=== PATIENT | female | born 1950 | race Caucasian/White ===

== ENCOUNTER 2017-03-08 18:41 | Inpatient (IN) | payer MEDICARE, OTHER ==
[2017-03-08] MEDS ORDERED: 0.9 % SODIUM CHLORIDE 1,000 ML BAG IV ONE (18:55)
[2017-03-08] MEDS ORDERED: ONDANSETRON HCL IV 4 MG/2 ML VIAL IV ONE (18:55)
[2017-03-08] MEDS ORDERED: 0.9 % SODIUM CHLORIDE 1000ML 1,000 ML IV ONE (18:55)
--- NOTE | 2017-03-08 19:03 | Emergency Department Record ---
History of Present Illness - General Chief complaint: Nausea, Vomiting, Diarrhea Stated complaint: VOMITING,DIARRHEA Time Seen by Provider: 03/08/17 18:54 Source: Patient, Family Mode of Arrival: Ambulatory Limitations: No limitations - History of Present Illness Initial comments: 66 yo female presents with nausea, vomiting and diarrhea. The onset of the symptoms was Sunday. On Sunday she only had nausea and vomiting. By Sunday the diarrhea developed. She has had continuous vomiting and diarrhea since that time. No blood in the vomit or stools. She saw her PCP. She was started on Bentyl and Protonix. The symptoms continued and she was started on Cipro yesterday. No fevers. MD complaint: Diarrhea, Nausea, Vomiting -: Days(s) (4) Description of Vomiting: Watery Description of Diarrhea: Water Associated Abdominal Pain: Yes Location: Diffuse Severity: Moderate Quality: Cramping Consistency: Constant Improves with: None Worsens with: Eating Context: Sick contacts Associated Symptoms: Malaise, Weakness - Related Data Home Medications Medication Instructions Recorded Confirmed Last Taken Cholecalciferol (Vitamin D3) 1,000 unit PO DAILY 01/09/15 03/08/17 03/08/17 [Vitamin D3] Glipizide [Glipizide ER] 5 mg PO BID 01/09/15 03/08/17 03/08/17 Lisinopril [Zestril] 10 mg PO DAILY 01/09/15 03/08/17 03/08/17 Metformin HCl [Glucophage] 1,000 mg PO BID 01/09/15 03/08/17 03/08/17 Aspirin [Aspirin EC] 81 mg PO DAILY 09/10/15 03/08/17 03/08/17 Rivaroxaban [Xarelto] 15 mg PO QHS 09/10/15 03/08/17 03/07/17 Atenolol [Atenolol] 50 mg PO DAILY 03/08/17 03/08/17 03/08/17 Ciprofloxacin HCl [Cipro] 500 mg PO DAILY 03/08/17 03/08/17 03/08/17 Metronidazole [Flagyl] 500 mg PO DAILY 03/08/17 03/08/17 03/08/17 Allergies Allergy/AdvReac Type Severity Reaction Status Date / Time No Known Drug Allergies Allergy Verified 09/10/15 14:47 Review of Systems Constitutional: Reports: Malaise, Weakness. Denies: Chills, Fever Eyes: Denies: Eye discharge, Vision change ENT: Denies: Congestion, Throat pain Respiratory: Denies: Cough, Dyspnea, Wheezes Cardiovascular: Denies: Chest pain, Palpitations, Syncope Endocrine: Reports: Fatigue Gastrointestinal: Reports: Diarrhea, Nausea, Vomiting. Denies: Abdominal pain, Constipation, Hematemesis, Hematochezia, Melena Genitourinary: Denies: Dysuria, Frequency, Urgency Musculoskeletal: Denies: Arthralgia, Back pain, Neck pain Skin: Denies: Bruising, Change in color, Rash Neurological: Denies: Headache, Weakness Psychiatric: Denies: Anxiety Hematological/Lymphatic: Denies: Easy bruising, Swollen glands Past Medical History - SOCIAL HISTORY Smoking Status: Former smoker - RESPIRATORY Hx Respiratory Disorders: Yes Hx Asthma: Yes Hx COPD: Yes ((start of emphysema)) Hx Pulmonary Embolism: Yes (01/2015) - CARDIOVASCULAR Hx Cardio Disorders: Yes Hx Abnormal EKG: Yes Hx Heart Attack: Yes (04/2015 while in hospital for urospesis) Hx Hypertension: Yes Hx Irregular Heartbeat: Yes (a-fib) Comment:: no comment - NEURO Hx Neuro Disorders: No Hx CVA: No Hx of Migraines: No - GI Hx GI Disorders: No Hx GI Bleed: No - Hx Genitourinary Disorders: Yes Hx UTI: Yes (04/2015 urosepsis) - ENDOCRINE Hx Endocrine Disorders: Yes Hx Diabetes: Yes - MUSCULOSKELETAL Hx Musculoskeletal Disorders: No Hx Arthritis: No - PSYCH Hx Psych Problems: No - HEMATOLOGY/ONCOLOGY Hx Hematology/Oncology Disorders: Yes Hx Anemia: Yes (currently) Hx Blood Transfusions: Yes (09/2015 2 units PRBC's) Family Medical History Hx Cancer: Mother *Cancer Comment: gastric Hx Diabetes: Mother Hx Stroke: Mother Physical Exam - General General Appearance: Alert, Oriented x3 Limitations: No limitations - Head Head exam: Atraumatic, Normocephalic, Normal inspection - Eye Eye exam: Normal appearance. negative: Conjunctival injection, Periorbital swelling, Scleral icterus - ENT ENT exam: Mucous membranes dry, Normal orophraynx Ear exam: Normal external inspection Nasal Exam: Normal inspection Mouth exam: Normal external inspection Teeth exam: Normal inspection Throat exam: Normal inspection - Neck Neck exam: Normal inspection, Full ROM. negative: Tenderness - Respiratory Respiratory exam: Normal lung sounds bilaterally. negative: Respiratory distress - Cardiovascular Cardiovascular Exam: Regular rate, Normal rhythm, Normal heart sounds - GI/Abdominal GI/Abdominal exam: Normal bowel sounds, Tenderness (very mild diffuse, very soft abdomen). negative: Distended, Guarding, Rigid - Rectal Rectal exam: Deferred - exam: Deferred - Extremities Extremities exam: Normal inspection, Full ROM, Normal capillary refill. negative: Tenderness - Back Back exam: Reports: Normal inspection, Full ROM. Denies: Muscle spasm, Rash noted, Tenderness - Neurological Neurological exam: Alert, Normal gait, Oriented X3 - Psychiatric Psychiatric exam: Normal affect, Normal mood. negative: Agitated, Anxious - Skin Skin exam: Dry, Intact, Normal color, Warm Course - Reevaluation(s) Reevaluation #1: 03/08/17 19:03 EMR reviewed 2014 PE Vitals reviewed. no acute changes of HR, BP, temp Reevaluation #2: 03/08/17 19:56 The labs were reviewed No acute changes of the WBC The sodium is low at 22 The BUN and Cr are elevated at 32 and 1.3 Her HCO3 is 16 She is dehydrated and will require admission with on going fluid and electrolyte replacement Reevaluation #3: The patient does not have a fever or elevated WBC count at this time Her abdomen is soft and not significantly tender to palpation No WBC's on her stool. She is heme positive but this is likely from her irritated anus from wiping as she is not having gross blood on stools. 03/08/17 20:15 Reevaluation #4: C. diff is negative. 03/08/17 20:34 Medical Decision Making - Lab Data Result diagrams: 03/08/17 19:20 03/08/17 19:20 Disposition Disposition: Admit Clinical Impression: Dehydration, Vomiting and diarrhea, Hyponatremia Disposition: Home, Self-Care Decision to Admit: Admit from ER Decision to Admit Date: 03/08/17 Decision to Admit Time: 19:59 Condition: (2) Stable Forms: Patient Portal Access Time of Disposition: 19:59
[2017-03-08 19:26] LABS: BASO % 0.3 % (0-6); GRAN % 64.9 % (47-80); HEMATOCRIT 36.8 % (35.0-47.0); HEMOGLOBIN 12.5 gm/dl (11.6-16.0); LYMPH % 27.6 % (16-45); MEAN CELL VOLUME 83.1 fl (81-97); MEAN CORPUSCULAR HEMOGLOBIN 28.2 pg (27-33); MEAN PLATELET VOLUME 11.3 fl (7.4-10.4); MONO % 7.2 % (0-9); PLATELET COUNT 282 K/uL (130-400); RED BLOOD COUNT 4.43 M/uL (3.80-5.40); RED CELL DISTRIBUTION WIDTH 13.7 % (11.5-14.5); WHITE BLOOD COUNT W/O DIFF 6.4 K/uL (4.2-12.2)
[2017-03-08 19:38] LABS: ALB/GLOB RATIO 1.3 (1.1-1.8); ALBUMIN 3.9 gm/dL (3.5-5.0); BILIRUBIN,TOTAL 0.39 mg/dL (0.2-1.3); CREATININE 1.3 mg/dL (0.52-1.04)
[2017-03-08 19:45] LABS: STOOL FOR POLYS NO WBC'S OBSERVED
[2017-03-08 19:47] LABS: CRYPTOSPORIDIUM PARVUM ANTIGEN NOT DETECTED (NOT DETECT); GIARDIA LAMBLIA ANTIGEN NOT DETECTED (NOT DETECT); ROTOVIRUS NOT DETECTED (NOT DETECT)
[2017-03-08 20:29] LABS: MOLECULAR C DIFF TOXIN SCREEN NOT DETECTED
[2017-03-08] MEDS ORDERED: ONDANSETRON HCL IV 4 MG/2 ML VIAL IVP PRN (20:36)
[2017-03-08] MEDS ORDERED: ZINC OXIDE 28.35 GM TUBE TOP PRN (22:07)
[2017-03-08] MEDS: POTASSIUM CHL 20MEQ IN 1L NS 20 MEQ/1,000 ML BAG IV SCH (22:11)
[2017-03-09] MEDS: POTASSIUM CHL 20MEQ IN 1L NS 20 MEQ/1,000 ML BAG IV SCH ×2 (06:36→16:07)
[2017-03-09 06:56] LABS: BASO % 0.4 % (0-6); EOS % 0.1 % (0-6); GRAN % 71.8 % (47-80); HEMATOCRIT 35.6 % (35.0-47.0); LYMPH % 20.4 % (16-45); MEAN CELL VOLUME 84.6 fl (81-97); MEAN CORPUSCULAR HEMOGLOBIN 28.5 pg (27-33); MEAN CORPUSCULAR HGB CONC 33.7 g/dl (32-36); MEAN PLATELET VOLUME 11.5 fl (7.4-10.4); MONO % 7.3 % (0-9); PLATELET COUNT 267 K/uL (130-400); RED BLOOD COUNT 4.21 M/uL (3.80-5.40); WHITE BLOOD COUNT W/O DIFF 7.8 K/uL (4.2-12.2)
[2017-03-09 07:07] LABS: ALB/GLOB RATIO 1.1 (1.1-1.8); ALBUMIN 3.4 gm/dL (3.5-5.0); ALKALINE PHOSPHATASE 68 U/L (38-126); ALT/SGPT 59 U/L (9-52); ANION GAP 11.5 (7-16); AST/SGOT 36 U/L (14-36); BILIRUBIN,TOTAL 0.46 mg/dL (0.2-1.3); BLOOD UREA NITROGEN 16 mg/dL (7-17); CARBON DIOXIDE 17.5 mmol/L (22-30); CREATININE 0.9 mg/dL (0.52-1.04); EST GLOMERULAR FILTRATION RATE > 60 ml/min; GLUCOSE,RANDOM 228 mg/dL (70-110); TOTAL PROTEIN 6.4 gm/dL (6.3-8.2)
--- NOTE | 2017-03-09 08:25 | History & Physical ---
History of Present Illness - Date of Service Date of Service for History & Physical: 03/09/17 - History of Present Illness Admitting Diagnosis: diarrhea and vomiting, hyponatremia, dehydration History of Present Illness: 66y female with CC of nausea, vomiting and diarrhea. She has a history of COPD, [place] -[place], HTN, afib, sepsis 2/2 UTI-2014, T2DM, anemia, and pulmonary embolism in 2014 Patient presented to the ED with vomiting and diarrhea since Sunday. She had seen her pcp twice this week for these symptoms. was started on protonix at the first visit and cipro at the second without any improvement. Says she threw the cipro right back up after taking it. She came in to the ED because she wasn't keeping any liquids down. While in the ED, patient was noted to have electrolyte abnormalities. Sodium was low at 122, chloride low at 93, bicarb low at 16, and potassium slightly low at 3.4. BP and heart rate were within normal ranges. blood glucose was elevated at 248. She had not been able to take her diabetes medications for several days. Stool studies were negative for rota, crypto, giardia, and c.diff. She did have positive stool occult, however, there was active rectal bleeding 2/2 irritation noted. Patient was given bolus NS and admitted for N/V, diarrhea and dehydration 03/09/17-patient states she is no longer having any nausea or vomiting. She denies abdominal pain. States she did have some lower abdominal cramping while having a BM but has not had any further cramping. She continues to have frequent loose stool at least 5 times this morning. does not feel this has improved at all. She reports trying some immodium this week with no success. her last cscope was in the past 3 months and was told everything looked good. She has never had symptoms like this before. no one else at home is sick. no recent travel. pcp: cheli Travel Screening - Travel/Exposure Within Last 30 Days Have you traveled within the last 30 days?: No - Travel/Exposure Within Last Year Have you traveled outside the [place] in the last year?: No - Additonal Travel Details Have you been exposed to anyone with a communicable illness?: No - Travel Symptoms Symptom Screening: None Review of Systems Constitutional: Reports: Weakness. Denies: Chills, Fever Eyes: Denies: Eye discharge, Vision change ENT: Denies: Congestion, Throat pain Respiratory: Denies: Cough, Dyspnea, Wheezes Cardiovascular: Denies: Chest pain, Palpitations, Syncope Endocrine: Reports: Fatigue Gastrointestinal: Reports: Diarrhea, Nausea, Vomiting. Denies: Abdominal pain, Constipation, Hematemesis, Hematochezia, Melena Genitourinary: Denies: Dysuria, Frequency, Urgency Musculoskeletal: Denies: Arthralgia, Back pain, Neck pain Skin: Denies: Bruising, Change in color, Rash Neurological: Denies: Headache, Weakness Psychiatric: Denies: Anxiety Hematological/Lymphatic: Denies: Easy bruising, Swollen glands Past Medical History - SOCIAL HISTORY Smoking Status: Former smoker Alcohol Use: None Drug Use: None - RESPIRATORY Hx Respiratory Disorders: Yes Hx Asthma: Yes Hx COPD: Yes ((start of emphysema)) Hx Pulmonary Embolism: Yes (01/2015) - CARDIOVASCULAR Hx Cardio Disorders: Yes Hx Abnormal EKG: Yes Hx Heart Attack: Yes (04/2015 while in hospital for urospesis) Hx Hypertension: Yes Hx Irregular Heartbeat: Yes (a-fib) Comment:: no comment - NEURO Hx Neuro Disorders: No Hx CVA: No Hx of Migraines: No - GI Hx GI Disorders: No Hx GI Bleed: No - Hx Genitourinary Disorders: Yes Hx UTI: Yes (04/2015 urosepsis) - ENDOCRINE Hx Endocrine Disorders: Yes Hx Diabetes: Yes - MUSCULOSKELETAL Hx Musculoskeletal Disorders: No Hx Arthritis: No - PSYCH Hx Psych Problems: No - HEMATOLOGY/ONCOLOGY Hx Hematology/Oncology Disorders: Yes Hx Anemia: Yes (currently) Hx Blood Transfusions: Yes (09/2015 2 units PRBC's) Family Medical History Any Significant Family History?: No Hx Cancer: Mother *Cancer Comment: gastric Hx Diabetes: Mother Hx Stroke: Mother H&P Meds/Allergies - Allergies Allergies: Allergies Allergy/AdvReac Type Severity Reaction Status Date / Time No Known Drug Allergies Allergy Verified 09/10/15 14:47 - Home Medications Home Medications Medication Instructions Recorded Confirmed Last Taken Cholecalciferol (Vitamin D3) 1,000 unit PO DAILY 01/09/15 03/08/17 03/08/17 [Vitamin D3] Glipizide [Glipizide ER] 5 mg PO BID 01/09/15 03/08/17 03/08/17 Lisinopril [Zestril] 10 mg PO DAILY 01/09/15 03/08/17 03/08/17 Metformin HCl [Glucophage] 1,000 mg PO BID 01/09/15 03/08/17 03/08/17 Aspirin [Aspirin EC] 81 mg PO DAILY 09/10/15 03/08/17 03/08/17 Rivaroxaban [Xarelto] 15 mg PO QHS 09/10/15 03/08/17 03/07/17 Atenolol [Atenolol] 50 mg PO DAILY 03/08/17 03/08/17 03/08/17 Ciprofloxacin HCl [Cipro] 500 mg PO DAILY 03/08/17 03/08/17 03/08/17 Metronidazole [Flagyl] 500 mg PO DAILY 03/08/17 03/08/17 03/08/17 - Active Medications Active Medications: Current Medications Aspirin (Ecotrin (Ec)) 81 mg PO DAILY [facility] Atenolol (Tenormin) 50 mg PO DAILY [facility] Potassium Chloride/Sodium Chloride ( Potassium Chl 20meq/) 20 meq in 1,000 mls @ 125 mls/hr IV Q8H [facility] Last Admin: 03/09/17 06:36 Dose: 125 mls/hr Insulin Aspart (Novolog Flexpen) 1 unit SQ TIDINS [facility] PRN Reason: Protocol Lisinopril (Zestril) 10 mg PO DAILY [facility] Ondansetron HCl (Zofran) 4 mg IVP Q4H PRN PRN Reason: NAUSEA Rivaroxaban (Xarelto) 15 mg PO 1730 [facility] Zinc Oxide (Desitin) 28.35 gm TOP ASDIR PRN PRN Reason: RASH Last Admin: 03/08/17 22:13 Dose: 28.35 gm Physical Exam - Vital Signs Vital Signs: Vital Signs - Last 24 Hrs Temp Pulse Resp BP Pulse Ox 03/09/17 06:00 97.8 F 91 H 18 122/61 95 03/09/17 02:36 99.0 F 92 H 20 102/55 95 03/09/17 01:38 12 03/08/17 21:08 97.9 F 85 20 124/62 99 - General General Appearance: Alert, Oriented x3, Cooperative, No acute distress Limitations: No limitations - Head Head exam: Atraumatic, Normocephalic, Normal inspection - Eye Eye exam: Normal appearance. negative: Conjunctival injection, Periorbital swelling, Scleral icterus - ENT ENT exam: Mucous membranes dry, Normal orophraynx Ear exam: Normal external inspection Nasal Exam: Normal inspection Mouth exam: Normal external inspection Teeth exam: Normal inspection Throat exam: Normal inspection - Neck Neck exam: Normal inspection, Full ROM. negative: Tenderness - Respiratory Respiratory exam: Normal lung sounds bilaterally. negative: Respiratory distress - Cardiovascular Cardiovascular Exam: Regular rate, Normal rhythm, Normal heart sounds - GI/Abdominal GI/Abdominal exam: Soft, Normal bowel sounds. negative: Distended, Guarding, Rigid, Tenderness - Rectal Rectal exam: Deferred - exam: Deferred - Extremities Extremities exam: Normal inspection, Full ROM, Normal capillary refill. negative: Tenderness - Back Back exam: Reports: Normal inspection, Full ROM. Denies: Muscle spasm, Rash noted, Tenderness - Neurological Neurological exam: Alert, Normal gait, Oriented X3 - Psychiatric Psychiatric exam: Normal affect, Normal mood. negative: Agitated, Anxious - Skin Skin exam: Dry, Intact, Normal color, Warm Results - Labs Result Diagrams: 03/10/17 06:18 03/10/17 06:18 Labs Last 24 Hours: Laboratory Results - last 24 hr 03/09/17 03/09/17 06:28 06:28 WBC 7.8 RBC 4.21 Hgb 12.0 Hct 35.6 MCV 84.6 MCH 28.5 MCHC 33.7 RDW 14.0 Plt Count 267 MPV 11.5 H Gran % 71.8 Lymphocytes % 20.4 Monocytes % 7.3 Eosinophils % 0.1 Basophils % 0.4 Sodium 132 L Potassium 3.3 L Chloride 103 Carbon Dioxide 17.5 L Anion Gap 11.5 BUN 16 Creatinine 0.9 Estimated GFR > 60 Random Glucose 228 H Calcium 7.6 L Total Bilirubin 0.46 AST 36 ALT 59 H Alkaline Phosphatase 68 Total Protein 6.4 Albumin 3.4 L Globulin 3.0 Albumin/Globulin Ratio 1.1 VTE H&P Assessment - Risk for VTE Risk for VTE: Yes Risk Level: Low Risk Assessment Date: 03/09/17 Risk Assessment Time: 11:00 VTE Orders Placed or Will Be Placed: Yes Plan - Inpatient Certification Inpatient Certification: Admit to inpatient care: Based on my medical assessment, after consideration of patient's risk factors (age, co-morbidities and patient presenting symptoms and acuity), I expect that this patient will remain in the hospital greater than or equal to two midnights and that the services needed warrant inpatient care because: Patient Risk Factors: [age, dehydration, electrolyte abnormalities, type 2 diabetes] Estimated length of stay: [48-72H] The patient may reasonably be expected to be discharged or transferred to a hospital within 96 hours after admission to [facility]. Services needed: [IV fluid and electrolyte replacement, anti-emetics] Post hospital care (if known): [] I certify that my determination is in accordance with my understanding of Medicare requirements for reasonable and necessary inpatient services. 03/09/17 08:24 - Detailed Diagnosis and Plan (1) Vomiting and diarrhea Current Visit: Yes Status: Acute Base Code: R11.10 - VOMITING, UNSPECIFIED; R19.7 - DIARRHEA, UNSPECIFIED Comment: 03/09/17- vomiting and nausea have resolved, however, she continues to have frequent loose stool. Last cscope in past 3 months. stool studies negative for giardia, rota, cdiff. WBC count wnl and patient is afebrile with only minimal, intermittent abdominal cramping. Stool occult positive but has active rectal bleeding from irritation. -CT abdomen to eval for diverticulitis vs colitis vs other -hold off on anti-diarrheal until results back -vitals q8H -labs qam (2) Electrolyte abnormality Current Visit: Yes Status: Acute Base Code: E87.8 - OTH DISORDERS OF ELECTROLYTE AND FLUID BALANCE, NEC Comment: 03/09/17- improving. Sodium up to 132 from 122. Chloride improved from 93-103. Bicarb up to 17.5 from 16.0 -continue NS with 20mq of kcl per liter at 125 cc/hr -repeat labs qam (3) Dehydration Current Visit: Yes Status: Acute Base Code: E86.0 - DEHYDRATION Comment: - improved. BUN and Cr improved to 16 and 0.9 from 32 and 1.3 respectively -continue IV fluid rescuscitation (4) Type 2 diabetes mellitus Current Visit: Yes Status: Acute Qualifiers: Diabetes mellitus complication status: without complication Diabetes mellitus nursing home insulin use: without nursing home use Qualified Code(s): E11.9 - Type 2 diabetes mellitus without complications Base Code: E11.9 - TYPE 2 DIABETES MELLITUS WITHOUT COMPLICATIONS Comment: 03/09- BG unctonrolled at 248. patient has not been able to take her metformin or glipizide for several days. -will add on novolog sliding scale for coverage until she is tolerating po medications and advancing diet. (5) Full code status Current Visit: Yes Status: Acute Base Code: Z78.9 - OTHER SPECIFIED HEALTH STATUS Comment: 03/09/17- patient is full code (6) DVT prophylaxis Current Visit: Yes Status: Acute Base Code: [id number] - Comment: 03/09/17- patient low risk with current nursing home anticoagulation with xarelto for afib -continue home xarelto dose
[2017-03-09] MEDS: NOVOLOG FLEXPEN (INSULIN ASPART) 100 UNITS/ML SQ SCH ×3 (09:12→17:42)
[2017-03-09] MEDS: ASPIRIN 81 MG TABEC PO SCH ×3 (09:39→11:10)
[2017-03-09] MEDS: ATENOLOL 50 MG TABLET PO SCH ×3 (09:39→11:12)
[2017-03-09] MEDS: LISINOPRIL 10 MG TABLET PO SCH ×3 (09:39→11:12)
[2017-03-09] MEDS ORDERED: ASPIRIN 81 MG TABEC PO SCH (10:00)
[2017-03-09] MEDS ORDERED: ATENOLOL 50 MG TABLET PO SCH (10:00)
[2017-03-09] MEDS ORDERED: LISINOPRIL 10 MG TABLET PO SCH (10:00)
[2017-03-09] MEDS: CIPROFLOXACIN HCL 500 MG TABLET PO SCH ×2 (11:05→11:07)
[2017-03-09] MEDS ORDERED: RIVAROXABAN 15 MG TABLET PO SCH (17:30)
[2017-03-09] MEDS: CIPROFLOXACIN LACTATE/D5W 400 MG/200 ML BAG IVPB SCH (18:54)
[2017-03-09] MEDS: METRONIDAZOLE IVPB 500 MG/100 ML BAG IVPB SCH (22:26)
[2017-03-09] MEDS: RIVAROXABAN 15 MG TABLET PO SCH (22:34)
[2017-03-10] MEDS: METRONIDAZOLE IVPB 500 MG/100 ML BAG IVPB SCH ×3 (05:09→20:26)
[2017-03-10] MEDS: POTASSIUM CHL 20MEQ IN 1L NS 20 MEQ/1,000 ML BAG IV SCH ×4 (05:10→20:30)
[2017-03-10 06:29] LABS: HEMATOCRIT 32.9 % (35.0-47.0); MEAN CELL VOLUME 85.9 fl (81-97); MEAN CORPUSCULAR HEMOGLOBIN 28.7 pg (27-33); MEAN CORPUSCULAR HGB CONC 33.4 g/dl (32-36); MEAN PLATELET VOLUME 11.6 fl (7.4-10.4); PLATELET COUNT 218 K/uL (130-400); RED BLOOD COUNT 3.83 M/uL (3.80-5.40); RED CELL DISTRIBUTION WIDTH 13.8 % (11.5-14.5); WHITE BLOOD COUNT W/O DIFF 10.9 K/uL (4.2-12.2)
[2017-03-10] MEDS: CIPROFLOXACIN LACTATE/D5W 400 MG/200 ML BAG IVPB SCH ×2 (06:30→19:15)
[2017-03-10 06:49] LABS: ALB/GLOB RATIO 1.1 (1.1-1.8); ALBUMIN 3.1 gm/dL (3.5-5.0); ALKALINE PHOSPHATASE 67 U/L (38-126); ALT/SGPT 42 U/L (9-52); ANION GAP 9.6 (7-16); AST/SGOT 22 U/L (14-36); BILIRUBIN,TOTAL 0.49 mg/dL (0.2-1.3); BLOOD UREA NITROGEN 4 mg/dL (7-17); CARBON DIOXIDE 18.4 mmol/L (22-30); CREATININE 0.7 mg/dL (0.52-1.04); EST GLOMERULAR FILTRATION RATE > 60 ml/min; GLUCOSE,RANDOM 202 mg/dL (70-110)
[2017-03-10] MEDS: NOVOLOG FLEXPEN (INSULIN ASPART) 100 UNITS/ML SQ SCH ×3 (09:10→19:11)
[2017-03-10] MEDS: ASPIRIN 81 MG TABEC PO SCH (09:25)
[2017-03-10] MEDS: ATENOLOL 50 MG TABLET PO SCH (09:27)
[2017-03-10] MEDS: LISINOPRIL 10 MG TABLET PO SCH (13:05)
--- NOTE | 2017-03-10 16:52 | Physician Progress Note ---
Subjective - Date Date of Physician Progress Note: 03/10/17 - Subjective Subjective Comment: 03/10/17- patient states she is doing much better today. She says her stool frequency has slowed down quite a bit. has only had one BM today and said it has some solid elements to it unlike yesterday. No stool incontinence today like she had been having. no nausea/vomiting or abdominal pain. no fevers, chills. tolerating clear liquid diet and did well with a piece of toast today at lunch. Objective - Vital Signs Vital Signs: Vital Signs - Last 24 Hrs Temp Pulse Resp BP BP Pulse Ox 03/10/17 14:00 98.8 F 90 18 134/71 97 03/10/17 10:00 98.8 F 94 H 18 124/70 97 03/10/17 09:00 18 03/10/17 06:00 98.5 F 86 18 111/59 98 03/10/17 00:14 98.2 F 94 H 18 109/59 98 03/09/17 21:00 16 03/09/17 20:00 98.7 F 95 H 20 97/62 97 - General General Appearance: Alert, Oriented x3, Cooperative, No acute distress Limitations: No limitations - Head Head exam: Atraumatic, Normocephalic, Normal inspection - Eye Eye exam: Normal appearance. negative: Conjunctival injection, Periorbital swelling, Scleral icterus - ENT ENT exam: Mucous membranes dry, Normal orophraynx Ear exam: Normal external inspection Nasal Exam: Normal inspection Mouth exam: Normal external inspection Teeth exam: Normal inspection Throat exam: Normal inspection - Neck Neck exam: Normal inspection, Full ROM. negative: Tenderness - Respiratory Respiratory exam: Normal lung sounds bilaterally. negative: Respiratory distress - Cardiovascular Cardiovascular Exam: Regular rate, Normal rhythm, Normal heart sounds - GI/Abdominal GI/Abdominal exam: Soft, Normal bowel sounds. negative: Distended, Guarding, Rigid, Tenderness - Rectal Rectal exam: Deferred - exam: Deferred - Extremities Extremities exam: Normal inspection, Full ROM, Normal capillary refill. negative: Tenderness - Back Back exam: Reports: Normal inspection, Full ROM. Denies: Muscle spasm, Rash noted, Tenderness - Neurological Neurological exam: Alert, Normal gait, Oriented X3 - Psychiatric Psychiatric exam: Normal affect, Normal mood. negative: Agitated, Anxious - Skin Skin exam: Dry, Intact, Normal color, Warm Assessment and Plan - Assessment and Plan (1) Vomiting and diarrhea Current Visit: Yes Status: Acute Base Code: R11.10 - VOMITING, UNSPECIFIED; R19.7 - DIARRHEA, UNSPECIFIED Comment: 03/10/17- CT scan showed diffuse colon wall thickening from cecum to transverse colon consistent with colitis. patient was started on iv cipro and flagyl based on those results and has had clinical improvement in symptoms. differential includes infectious, inflammatory, or ischemic. Last cscope was in the past 3 months. stool studies negative for giardia, rota, cdiff. WBC count reamins wnl and patient is afebrile without abdominal pain. -continue cipro IV 400mg q12 and flagyl 500mg IV q8H -may advance diet as tolerating -will need outpatient GI referral for further work-up -vitals q8H -labs qam (2) Electrolyte abnormality Current Visit: Yes Status: Acute Base Code: E87.8 - OTH DISORDERS OF ELECTROLYTE AND FLUID BALANCE, NEC Comment: 03/10/17- improving. Sodium up to 134 from 122. Chloride improved from 93 to 106. Bicarb up to 18.4 from 16.0. potassium remains slightly low at 3.3, however, continued to have frequent diarrhea throughout the day yesterday. magnesium wnl. suspect improvement now that diarrhea is resolving. -continue NS with 20mq of kcl per liter at 125 cc/hr -repeat labs qam (3) Dehydration Current Visit: Yes Status: Acute Base Code: E86.0 - DEHYDRATION Comment: - improving. tolerating po fluids -continue IV fluid rescuscitation until advanced to regular diet (4) Type 2 diabetes mellitus Current Visit: Yes Status: Acute Qualifiers: Diabetes mellitus complication status: without complication Diabetes mellitus terminal operations manager insulin use: without long-term use Qualified Code(s): E11.9 - Type 2 diabetes mellitus without complications Base Code: E11.9 - TYPE 2 DIABETES MELLITUS WITHOUT COMPLICATIONS Comment: 03/10- BG unctonrolled at 248. patient has not been able to take her metformin or glipizide for several days. -will add on novolog sliding scale for coverage until she is tolerating po medications and advancing diet. (5) Full code status Current Visit: Yes Status: Acute Base Code: Z78.9 - OTHER SPECIFIED HEALTH STATUS Comment: 03/10/17- patient is full code (6) DVT prophylaxis Current Visit: Yes Status: Acute Base Code: [id number] - Comment: 03/10/17- patient low risk with current terminal operations manager anticoagulation with xarelto for afib. hgb stable but will continue to monitor wtih possible inflammatory cause of colitis while on anticoag. -continue home xarelto dose Results - Labs Result Diagrams: 03/10/17 06:18 03/10/17 06:18 Labs Last 24 Hours: Laboratory Results - last 24 hr 03/09/17 03/09/17 03/10/17 17:01 21:41 06:10 WBC Corrected WBC RBC Hgb Hct MCV MCH MCHC RDW Plt Count MPV Gran % Neutrophils % Band Neutrophils % Lymphocytes % Monocytes % Eosinophils % Basophils % Metamyelocytes Myelocytes Promyelocytes Nucleated RBCs Differential Comment Hypersegmented Polys Plasma Cells Other Cell Type Toxic Granulation Dohle Bodies Sandra Rods Platelet Estimate RBC Morphology Polychromasia Hypochromasia Poikilocytosis Basophilic Stippling Anisocytosis Microcytosis Macrocytosis Spherocytes Sickle Cells Target Cells Tear Drop Cells Ovalocytes Stomatocytes Helmet Cells [place] Bodies [place] Rings Vahe Cells Acanthocytes (Spur) Rouleaux Schistocytes Morphology Comment Sodium Potassium Chloride Carbon Dioxide Anion Gap BUN Creatinine Estimated GFR POC Glucose 162 H 248 H Random Glucose Calcium Magnesium 1.9 Total Bilirubin AST ALT Alkaline Phosphatase Total Protein Albumin Globulin Albumin/Globulin Ratio 03/10/17 03/10/17 03/10/17 06:18 06:18 06:18 WBC 10.9 Cancelled Corrected WBC Cancelled RBC 3.83 Cancelled Hgb 11.0 L Cancelled Hct 32.9 L Cancelled MCV 85.9 Cancelled MCH 28.7 Cancelled MCHC 33.4 Cancelled RDW 13.8 Cancelled Plt Count 218 Cancelled MPV 11.6 H Cancelled Gran % Cancelled Neutrophils % 69.0 Cancelled Band Neutrophils % Cancelled Lymphocytes % 24.0 Cancelled Monocytes % 7.0 Cancelled Eosinophils % Not Reportable Cancelled Basophils % Not Reportable Cancelled Metamyelocytes Cancelled Myelocytes Cancelled Promyelocytes Cancelled Nucleated RBCs Cancelled Differential Comment Cancelled Hypersegmented Polys Cancelled Plasma Cells Cancelled Other Cell Type Cancelled Toxic Granulation Cancelled Dohle Bodies Cancelled Sandra Rods Cancelled Platelet Estimate Cancelled RBC Morphology Cancelled Polychromasia Cancelled Hypochromasia Cancelled Poikilocytosis Cancelled Basophilic Stippling Cancelled Anisocytosis Cancelled Microcytosis Cancelled Macrocytosis Cancelled Spherocytes Cancelled Sickle Cells Cancelled Target Cells Cancelled Tear Drop Cells Cancelled Ovalocytes Cancelled Stomatocytes Cancelled Helmet Cells Cancelled [place] Bodies Cancelled [place] Rings Cancelled [place] Cells Cancelled Acanthocytes (Spur) Cancelled Rouleaux Cancelled Schistocytes Cancelled Morphology Comment Cancelled Sodium 134 L Potassium 3.3 L Chloride 106 Carbon Dioxide 18.4 L Anion Gap 9.6 BUN 4 L Creatinine 0.7 Estimated GFR > 60 POC Glucose Random Glucose 202 H Calcium 7.8 L Magnesium Total Bilirubin 0.49 AST 22 ALT 42 Alkaline Phosphatase 67 Total Protein 6.0 L Albumin 3.1 L Globulin 2.9 Albumin/Globulin Ratio 1.1 03/10/17 11:39 WBC Corrected WBC RBC Hgb Hct MCV MCH MCHC RDW Plt Count MPV Gran % Neutrophils % Band Neutrophils % Lymphocytes % Monocytes % Eosinophils % Basophils % Metamyelocytes Myelocytes Promyelocytes Nucleated RBCs Differential Comment Hypersegmented Polys Plasma Cells Other Cell Type Toxic Granulation Dohle Bodies Sandra Rods Platelet Estimate RBC Morphology Polychromasia Hypochromasia Poikilocytosis Basophilic Stippling Anisocytosis Microcytosis Macrocytosis Spherocytes Sickle Cells Target Cells Tear Drop Cells Ovalocytes Stomatocytes Helmet Cells [place] Bodies [place] Rings Vahe Cells Acanthocytes (Spur) Rouleaux Schistocytes Morphology Comment Sodium Potassium Chloride Carbon Dioxide Anion Gap BUN Creatinine Estimated GFR POC Glucose 217 H Random Glucose Calcium Magnesium Total Bilirubin AST ALT Alkaline Phosphatase Total Protein Albumin Globulin Albumin/Globulin Ratio DVT/PE Assessment - Risk for VTE Risk for VTE: No Risk Level: Low Risk Assessment Date: 03/09/17 Risk Assessment Time: 11:00 VTE Orders Placed or Will Be Placed: Yes - Active Medicaitons Current Medications: Current Medications Aspirin (Ecotrin (Ec)) 81 mg PO DAILY [facility] Last Admin: 03/10/17 09:25 Dose: 81 mg Atenolol (Tenormin) 50 mg PO DAILY [facility] Last Admin: 03/10/17 09:27 Dose: 50 mg Potassium Chloride/Sodium Chloride ( Potassium Chl 20meq/) 20 meq in 1,000 mls @ 125 mls/hr IV Q8H [facility] Last Admin: 03/10/17 13:03 Dose: Not Given Ciprofloxacin Lactate (Cipro) 400 mg in 200 mls @ 200 mls/hr IVPB Q12H [facility] Stop: 03/14/17 18:46 Last Admin: 03/10/17 06:30 Dose: 200 mls/hr Metronidazole/Sodium Chloride (Flagyl) 500 mg in 100 mls @ 100 mls/hr IVPB Q8H [facility] Stop: 03/14/17 20:01 Last Admin: 03/10/17 13:03 Dose: 100 mls/hr Insulin Aspart (Novolog Flexpen) 1 unit SQ TIDINS [facility] PRN Reason: Protocol Last Admin: 03/10/17 13:04 Dose: 6 unit Lisinopril (Zestril) 10 mg PO DAILY [facility] Last Admin: 03/10/17 13:05 Dose: 10 mg Ondansetron HCl (Zofran) 4 mg IVP Q4H PRN PRN Reason: NAUSEA Rivaroxaban (Xarelto) 15 mg PO QHS [facility] Last Admin: 03/09/17 22:34 Dose: 15 mg Zinc Oxide (Desitin) 28.35 gm TOP ASDIR PRN PRN Reason: RASH Last Admin: 03/08/17 22:13 Dose: 28.35 gm AMI Plan - Labs Result Diagrams: 03/10/17 06:18 03/10/17 06:18
[2017-03-10] MEDS: RIVAROXABAN 15 MG TABLET PO SCH (23:42)
[2017-03-11] MEDS: METRONIDAZOLE IVPB 500 MG/100 ML BAG IVPB SCH (04:00)
[2017-03-11] MEDS: CIPROFLOXACIN LACTATE/D5W 400 MG/200 ML BAG IVPB SCH (06:17)
[2017-03-11 06:38] LABS: BASO % 0.6 % (0-6); EOS % 0.7 % (0-6); GRAN % 62.2 % (47-80); HEMATOCRIT 34.1 % (35.0-47.0); HEMOGLOBIN 11.3 gm/dl (11.6-16.0); LYMPH % 30.4 % (16-45); MEAN CELL VOLUME 86.5 fl (81-97); MEAN CORPUSCULAR HGB CONC 33.1 g/dl (32-36); MEAN PLATELET VOLUME 11.5 fl (7.4-10.4); MONO % 6.1 % (0-9); PLATELET COUNT 208 K/uL (130-400); RED BLOOD COUNT 3.94 M/uL (3.80-5.40); WHITE BLOOD COUNT W/O DIFF 11.5 K/uL (4.2-12.2)
[2017-03-11 06:42] LABS: MEAN CORPUSCULAR HEMOGLOBIN 28.6 pg (27-33)
[2017-03-11 06:43] LABS: ALB/GLOB RATIO 0.9 (1.1-1.8); ALBUMIN 2.9 gm/dL (3.5-5.0); ALKALINE PHOSPHATASE 67 U/L (38-126); ALT/SGPT 38 U/L (9-52); ANION GAP 8.6 (7-16); AST/SGOT 18 U/L (14-36); BILIRUBIN,TOTAL 0.37 mg/dL (0.2-1.3); BLOOD UREA NITROGEN 3 mg/dL (7-17); CARBON DIOXIDE 19.4 mmol/L (22-30); CREATININE 0.7 mg/dL (0.52-1.04); EST GLOMERULAR FILTRATION RATE > 60 ml/min; GLUCOSE,RANDOM 229 mg/dL (70-110); TOTAL PROTEIN 6.1 gm/dL (6.3-8.2)
[2017-03-11] MEDS: NOVOLOG FLEXPEN (INSULIN ASPART) 100 UNITS/ML SQ SCH ×2 (08:36→12:36)
--- NOTE | 2017-03-11 09:32 | Discharge Summary ---
Providers Discharge Summary Date: 03/11/17 Date of admission: 03/08/17 21:04 Expected Date of Discharge: 03/11/17 Attending physician: GIANNA LOVELACE Primary care physician: TYLOR LUGO D.O. Physical Exam - Vital Signs Vital Signs: Vital Signs - Last 24 Hrs Temp Pulse Resp BP BP Pulse Ox 03/11/17 08:18 97.7 F 82 18 113/70 98 03/11/17 05:29 98.2 F 81 18 133/74 98 03/11/17 01:09 97.9 F 63 18 110/70 98 03/10/17 20:30 99.2 F 90 18 125/63 98 03/10/17 19:14 98.8 F 134/71 03/10/17 14:00 98.8 F 90 18 134/71 97 03/10/17 10:00 98.8 F 94 H 18 124/70 97 - General General Appearance: Alert, Oriented x3, Cooperative, No acute distress Limitations: No limitations - Head Head exam: Atraumatic, Normocephalic, Normal inspection - Eye Eye exam: Normal appearance. negative: Conjunctival injection, Periorbital swelling, Scleral icterus - ENT ENT exam: Mucous membranes dry, Normal orophraynx Ear exam: Normal external inspection Nasal Exam: Normal inspection Mouth exam: Normal external inspection Teeth exam: Normal inspection Throat exam: Normal inspection - Neck Neck exam: Normal inspection, Full ROM. negative: Tenderness - Respiratory Respiratory exam: Normal lung sounds bilaterally. negative: Respiratory distress - Cardiovascular Cardiovascular Exam: Regular rate, Normal rhythm, Normal heart sounds - GI/Abdominal GI/Abdominal exam: Soft, Normal bowel sounds. negative: Distended, Guarding, Rigid, Tenderness - Rectal Rectal exam: Deferred - exam: Deferred - Extremities Extremities exam: Normal inspection, Full ROM, Normal capillary refill. negative: Tenderness - Back Back exam: Reports: Normal inspection, Full ROM. Denies: Muscle spasm, Rash noted, Tenderness - Neurological Neurological exam: Alert, Normal gait, Oriented X3 - Psychiatric Psychiatric exam: Normal affect, Normal mood. negative: Agitated, Anxious - Skin Skin exam: Dry, Intact, Normal color, Warm Hospitalization - Hospitalization Admission Diagnosis: diarrhea and vomiting, hyponatremia, dehydration - Problem List/Discharge Diagnosis (1) Vomiting and diarrhea Status: Acute Base Code: R11.10 - VOMITING, UNSPECIFIED; R19.7 - DIARRHEA, UNSPECIFIED Comment: 03/11/17- improved. stool becoming more formed and less frequent. tolerating regular diet. CT scan showed diffuse colon wall thickening from cecum to transverse colon consistent with colitis. patient was started on iv cipro and flagyl based on those results and has had clinical improvement in symptoms. differential includes infectious, inflammatory, or ischemic. Last cscope was in the past 3 months. stool studies negative for giardia, rota, cdiff. WBC count remains wnl and patient is afebrile without abdominal pain. -plan to discharge home with pcp follow up this week -transition to oral cipro 500mg q12 and flagyl 500mg q8H for total 10 day course. she had scripts from dr. Lugo filled prior to coming to the ED. I confirmed she had both medications and that the cipro had 10 days worth of medication but that the flagyl was only prescribed for 5 days so sent an additionl 5 day script to pharmacy. -continue to advance diet as tolerating -will need outpatient GI referral for further work-up (2) Electrolyte abnormality Status: Acute Base Code: E87.8 - OTH DISORDERS OF ELECTROLYTE AND FLUID BALANCE, NEC Comment: 03/11/17- resolving. sodium, potassium and chloride wnl. bicarb continues to trend towards normal now at 19.4 up from 16 at admission. -follow up with pcp for re-check this week (3) Dehydration Status: Acute Base Code: E86.0 - DEHYDRATION Comment: 03/11/17- resolved. tolerating po fluids (4) Type 2 diabetes mellitus Status: Acute Discharge Diagnosis: Diabetes mellitus complication status: without complication Diabetes mellitus correction insulin use: without truck guard use Qualified Code(s): E11.9 - Type 2 diabetes mellitus without complications Base Code: E11.9 - TYPE 2 DIABETES MELLITUS WITHOUT COMPLICATIONS Comment: 03/11-resume home medications now that she is tolerating full diet. (5) Full code status Status: Acute Base Code: Z78.9 - OTHER SPECIFIED HEALTH STATUS Comment: - patient is full code (6) DVT prophylaxis Status: Acute Base Code: [id number] - Comment: 03/11/17- patient low risk with current correction anticoagulation with xarelto for afib. hgb stable -continue home xarelto dose - Hospitalization Course Disposition: Home, Self-Care Hospital Course: 66y female with CC of nausea, vomiting and diarrhea. She has a history of COPD, [place] -2014, HTN, afib, sepsis 2/2 UTI-2014, T2DM, anemia, and pulmonary embolism in 2014 Patient presented to the ED with vomiting and diarrhea since Sunday. She had seen her pcp twice this week for these symptoms. was started on protonix at the first visit and cipro at the second without any improvement. Says she threw the cipro right back up after taking it. She came in to the ED because she wasn't keeping any liquids down. While in the ED, patient was noted to have electrolyte abnormalities. Sodium was low at 122, chloride low at 93, bicarb low at 16, and potassium slightly low at 3.4. BP and heart rate were within normal ranges. blood glucose was elevated at 248. She had not been able to take her diabetes medications for several days. Stool studies were negative for rota, crypto, giardia, and c.diff. She did have positive stool occult, however, there was active rectal bleeding 2/2 irritation noted. Patient was given bolus NS and admitted for N/V, diarrhea and dehydration 03/09/17-patient states she is no longer having any nausea or vomiting. She denies abdominal pain. States she did have some lower abdominal cramping while having a BM but has not had any further cramping. She continues to have frequent loose stool at least 5 times this morning. does not feel this has improved at all. She reports trying some immodium this week with no success. her last cscope was in the past 3 months and was told everything looked good. She has never had symptoms like this before. no one else at home is sick. no recent travel. 03/10/17- patient states she is doing much better today. She says her stool frequency has slowed down quite a bit. has only had one BM today and said it has some solid elements to it unlike yesterday. No stool incontinence today like she had been having. no nausea/vomiting or abdominal pain. no fevers, chills. tolerating clear liquid diet and did well with a piece of toast today at lunch. 03/11/17- patient states she is ready to go home today. she says her stool is becoming more formed and less frequent. she had regular breakfast and lunch today without nausea, abdominal pain or diarrhea. She denies fevers or chills. Procedures: Imaging and X-Rays 03/09/17 13:01 ABDOMEN/PELVIS W CONTRAST [CT] Stat Abnormal Labs: Abnormal Lab Results 03/09/17 03/09/17 03/09/17 Range/Units 06:28 06:28 11:47 Hgb (11.6-16.0) gm/dl Hct (35.0-47.0) % MPV 11.5 H (7.4-10.4) fl Sodium 132 L (136-145) mmol/L Potassium 3.3 L (3.5-5.1) mmol/L Chloride (98-107) mmol/L Carbon Dioxide 17.5 L (22-30) mmol/L BUN (7-17) mg/dL POC Glucose 204 H (70-110) mg/dL Random Glucose 228 H (70-110) mg/dL Calcium 7.6 L (8.5-10.1) mg/dL ALT 59 H (9-52) U/L Total Protein (6.3-8.2) gm/dL Albumin 3.4 L (3.5-5.0) gm/dL Albumin/Globulin Ratio (1.1-1.8) 03/09/17 03/09/17 03/10/17 Range/Units 17:01 21:41 06:18 Hgb 11.0 L (11.6-16.0) gm/dl Hct 32.9 L (35.0-47.0) % MPV 11.6 H (7.4-10.4) fl Sodium (136-145) mmol/L Potassium (3.5-5.1) mmol/L Chloride (98-107) mmol/L Carbon Dioxide (22-30) mmol/L BUN (7-17) mg/dL POC Glucose 162 H 248 H (70-110) mg/dL Random Glucose (70-110) mg/dL Calcium (8.5-10.1) mg/dL ALT (9-52) U/L Total Protein (6.3-8.2) gm/dL Albumin (3.5-5.0) gm/dL Albumin/Globulin Ratio (1.1-1.8) 03/10/17 03/10/17 03/10/17 Range/Units 06:18 11:39 18:10 Hgb (11.6-16.0) gm/dl Hct (35.0-47.0) % MPV (7.4-10.4) fl Sodium 134 L (136-145) mmol/L Potassium 3.3 L (3.5-5.1) mmol/L Chloride (98-107) mmol/L Carbon Dioxide 18.4 L (22-30) mmol/L BUN 4 L (7-17) mg/dL POC Glucose 217 H 211 H (70-110) mg/dL Random Glucose 202 H (70-110) mg/dL Calcium 7.8 L (8.5-10.1) mg/dL ALT (9-52) U/L Total Protein 6.0 L (6.3-8.2) gm/dL Albumin 3.1 L (3.5-5.0) gm/dL Albumin/Globulin Ratio (1.1-1.8) 03/10/17 03/11/17 03/11/17 Range/Units 22:00 06:20 06:20 Hgb 11.3 L (11.6-16.0) gm/dl Hct 34.1 L (35.0-47.0) % MPV 11.5 H (7.4-10.4) fl Sodium (136-145) mmol/L Potassium (3.5-5.1) mmol/L Chloride 109 H (98-107) mmol/L Carbon Dioxide 19.4 L (22-30) mmol/L BUN 3 L (7-17) mg/dL POC Glucose 289 H (70-110) mg/dL Random Glucose 229 H (70-110) mg/dL Calcium 7.9 L (8.5-10.1) mg/dL ALT (9-52) U/L Total Protein 6.1 L (6.3-8.2) gm/dL Albumin 2.9 L (3.5-5.0) gm/dL Albumin/Globulin Ratio 0.9 L (1.1-1.8) Condition at Discharge: (2) Stable Discharge Medications - Discharge Medications Prescriptions: Metronidazole [Flagyl] 500 mg PO Q8HR #15 tab Home Medications: Ambulatory Orders Cholecalciferol (Vitamin D3) [Vitamin D3] 1,000 unit PO DAILY 01/09/15 [Last Taken 03/08/17] Glipizide [Glipizide ER] 5 mg PO BID 01/09/15 [Last Taken 03/08/17] Lisinopril [Zestril] 10 mg PO DAILY 01/09/15 [Last Taken 03/08/17] Metformin HCl [Glucophage] 1,000 mg PO BID 01/09/15 [Last Taken 03/08/17] Aspirin [Aspirin EC] 81 mg PO DAILY 09/10/15 [Last Taken 03/08/17] Rivaroxaban [Xarelto] 15 mg PO QHS 09/10/15 [Last Taken 03/07/17] Atenolol 50 mg PO DAILY 03/08/17 [Last Taken 03/08/17] Ciprofloxacin HCl [Cipro] 500 mg PO DAILY 03/08/17 [Last Taken 03/08/17] Metronidazole [Flagyl] 500 mg PO Q8HR #15 tab 03/11/17 [Last Taken Unknown] Discharge Plan - Discharge Instructions Activity at Discharge: Resume Usual Activities As Tolerated Diet at Discharge: Advance to Usual Diet Instructions: Infectious Colitis (GEN) Additional Instructions: Follow up with primary care this week to discuss GI referral for colitis Continue cipro 500mg po q12H for 10 days. This medication was previously prescribed by Dr. Lugo so may continue from the bottle previously picked up from [facility] continue flagyl 500mg po q8H for 10 days. You may continue from the bottle that was previously picked up but I have sent an additional 5 days worth of medication so you can complete a 10 day course. Resume your metformin and glipizide now that you are tolerating a regular diet Return to ED at any time for new or worsening symptoms
[2017-03-11] MEDS: POTASSIUM CHL 20MEQ IN 1L NS 20 MEQ/1,000 ML BAG IV SCH (09:44)
[2017-03-11] MEDS: ATENOLOL 50 MG TABLET PO SCH (09:49)
[2017-03-11] MEDS: ASPIRIN 81 MG TABEC PO SCH (09:49)
[2017-03-11] MEDS: LISINOPRIL 10 MG TABLET PO SCH (09:57)
[2017-03-11] MEDS ORDERED: METRONIDAZOLE 250 MG TABLET PO SCH (14:00)
[2017-03-11] MEDS ORDERED: CIPROFLOXACIN HCL 500 MG TABLET PO SCH (18:00)
--- NOTE | 2017-03-12 08:37 | CT SCAN REPORT ---
EXAM: CT SCAN OF THE ABDOMEN AND PELVIS HISTORY: PATIENT HAS DIARRHEA AND OCCASIONAL CRAMPS. TECHNIQUE: Serial axial CT scan of the abdomen and pelvis was performed at 3.75 mm intervals from the dome of the diaphragm down to the pubic symphysis following the intravenous and oral administration of contrast. Comparison: CT scan of the chest dated 01/09/15 is provided. FINDINGS: The lung windows of the lung bases demonstrate no CT evidence of a focal infiltrate or pleural effusion. The visualized heart size and contour is within normal limits. Diffuse fatty infiltration is noted throughout the liver. This finding is unchanged with respect to the prior CT scan. Contour and size of the liver are within normal limits. No suspicious hepatic lesions are identified. Within the spleen there is a 4.1 cm x 4.1 cm cyst. This lesion is slightly larger than on the prior CT scan. Otherwise the size and contour of the spleen is within normal limits. The pancreas and bilateral adrenal glands are unremarkable. The gallbladder is questionably identified. There is a cystic structure identified in the region of the gallbladder fossa which measures approximately 12 mm. This may represent a decompressed gallbladder. Clinical correlation is recommended. There is no CT evidence of hydronephrosis or hydroureter. No renal or ureteral calculi are identified. The contour, caliber and flow within the abdominal aorta is within normal limits. There is no CT evidence of retroperitoneal, pelvic, or inguinal lymphadenopathy. The bowel gas pattern is nonobstructed. There is moderate to significant colonic wall thickening extending from the cecum to the distal transverse colon. Differential considerations include infectious versus inflammatory versus ischemic colitis. Clinical correlation is recommended. The appendix is clearly visualized and there is no CT evidence of appendicitis. There is no CT evidence of free intraperitoneal air or free intraperitoneal fluid. The urinary bladder is decompressed. The uterus is unremarkable. Multiple colonic diverticula are noted without CT evidence of diverticulitis. Bone windows demonstrate multilevel degenerative disk disease of the lower thoracic and upper lumbar spine. IMPRESSION: 1. MODERATE TO SIGNIFICANT COLONIC WALL THICKENING OF THE CECUM EXTENDING TO THE DISTAL TRANSVERSE COLON IS NOTED DESCRIBED. DIFFERENTIAL CONSIDERATIONS INCLUDE INFECTIOUS VERSUS INFLAMMATORY VERSUS ISCHEMIC COLITIS. CLINICAL CORRELATION IS RECOMMENDED. 2. STABLE CT APPEARANCE OF THE SPLEEN WITH RESPECT TO THE PRIOR EXAMINATION. 3. DIFFUSE HEPATIC STEATOSIS. 4. COLONIC DIVERTICULOSIS IS NOTED WITHOUT CT EVIDENCE OF DIVERTICULITIS. JOB NUMBER: [id number] [facility]
== END 2017-03-11 14:30 | disposition home or self-care (01) | DRG 641 ==
LOC: ER 18:41 → MEDSURG 21:04
PROVIDERS: ADMIT Family Medicine; ATTEND Family Medicine
DX: E86.0 Dehydration (principal); E87.1 Hypo-osmolality and hyponatremia; R11.2 Nausea with vomiting, unspecified; R19.7 Diarrhea, unspecified; J44.9 Chronic obstructive pulmonary disease, unspecified; I10 Essential (primary) hypertension; E11.9 Type 2 diabetes mellitus without complications; Z79.4 Long term (current) use of insulin; Z78.9 Other specified health status
CPT/HCPCS: 99285 ×2; 96374; 96361; 83690; 87329; 85025; 80053; 89055; 87425; 82272; 87493; 80162; J2405; 36416; 74177; 82948; 83735; 85027; 99223; 99233; 99239; J7030

== ENCOUNTER 2018-01-31 09:04 | Emergency (ER) | payer MEDICARE, OTHER ==
[2018-01-31] MEDS ORDERED: TOPICAL LIDOCAINE W/ EPI 5 ML TOP ONE (09:16)
--- NOTE | 2018-01-31 09:22 | Emergency Department Record ---
History of Present Illness - General Chief complaint: Nosebleed/epistaxis Stated complaint: NOSE BLEED Time Seen by Provider: 01/31/18 09:16 Source: Patient Mode of Arrival: Ambulatory Limitations: No limitations - History of Present Illness Initial comments: 67 yo female presents with intermittent nose bleeding this morning only on the left. The bleeding has stopped currently. She is on aspirin and xarelto. No history of major nose bleeding or nasal disease. No bruising. She is on xarelto for PE. MD complaint: Epistaxis Onset/Timin -: Hour(s) Location: Nose Consistency: Intermittent Improves with: None Worsens with: None Context-Epistaxis: Aspirin use, Other - Related Data Previous Rx's Medication Instructions Recorded Cephalexin [Keflex] 500 mg PO BID #6 cap 01/31/18 Allergies Allergy/AdvReac Type Severity Reaction Status Date / Time No Known Drug Allergies Allergy Verified 01/31/18 09:07 Travel Screening - Travel/Exposure Within Last 30 Days Have you traveled within the last 30 days?: No - Travel/Exposure Within Last Year Have you traveled outside the [place] in the last year?: No - Additonal Travel Details Have you been exposed to anyone with a communicable illness?: No - Travel Symptoms Symptom Screening: None Review of Systems Constitutional: Denies: Chills, Fever, Malaise, Weakness Eyes: Denies: Eye discharge, Eye pain ENT: Reports: As per HPI, Epistaxis. Denies: Congestion, Throat pain Respiratory: Denies: Cough, Dyspnea, Hemoptysis Cardiovascular: Denies: Chest pain, Palpitations, Syncope Gastrointestinal: Denies: Abdominal pain, Diarrhea, Nausea, Vomiting Genitourinary: Denies: Dysuria, Urgency Musculoskeletal: Denies: Arthralgia, Back pain, Joint swelling, Myalgia Skin: Denies: Bruising, Change in color, Rash Neurological: Denies: Headache, Numbness, Weakness Psychiatric: Denies: Anxiety Hematological/Lymphatic: Reports: Blood Clots. Denies: Easy bleeding, Easy bruising Past Medical History - SOCIAL HISTORY Smoking Status: Former smoker Alcohol Use: Rare Drug Use: None - RESPIRATORY Hx Respiratory Disorders: Yes Hx Asthma: Yes Hx COPD: Yes ((start of emphysema)) Hx Pulmonary Embolism: Yes (01/2015) - CARDIOVASCULAR Hx Cardio Disorders: Yes Hx Abnormal EKG: Yes Hx Heart Attack: Yes (04/2015 while in hospital for urospesis) Hx Hypertension: Yes Hx Irregular Heartbeat: Yes (a-fib) Comment:: no comment - NEURO Hx Neuro Disorders: No Hx CVA: No Hx of Migraines: No - GI Hx GI Disorders: No Hx GI Bleed: No - Hx Genitourinary Disorders: Yes Hx UTI: Yes (04/2015 urosepsis) - ENDOCRINE Hx Endocrine Disorders: Yes Hx Diabetes: Yes - MUSCULOSKELETAL Hx Musculoskeletal Disorders: No Hx Arthritis: No - PSYCH Hx Psych Problems: No - HEMATOLOGY/ONCOLOGY Hx Hematology/Oncology Disorders: Yes Hx Anemia: Yes (currently) Hx Blood Transfusions: Yes (09/2015 2 units PRBC's) Family Medical History Any Significant Family History?: Yes Hx Cancer: Mother *Cancer Comment: gastric Hx Diabetes: Mother Hx Stroke: Mother Physical Exam - General General Appearance: Alert, Oriented x3, Cooperative, No acute distress Limitations: No limitations - Head Head exam: Normal inspection - Eye Eye exam: Normal appearance, PERRL. negative: Conjunctival injection, Scleral icterus - ENT ENT exam: Normal exam, Mucous membranes moist Ear exam: Normal external inspection Nasal Exam: Dried blood (left anterior septum). negative: Normal inspection Mouth exam: Other (no blood). negative: Drooling Teeth exam: Normal inspection Throat exam: Normal inspection - Neck Neck exam: Normal inspection, Full ROM. negative: Tenderness - Respiratory Respiratory exam: Normal lung sounds bilaterally. negative: Respiratory distress - Cardiovascular Cardiovascular Exam: Regular rate, Normal rhythm, Normal heart sounds - Rectal Rectal exam: Deferred - exam: Deferred - Extremities Extremities exam: Normal inspection, Full ROM, Normal capillary refill. negative: Tenderness - Back Back exam: Reports: Normal inspection - Neurological Neurological exam: Alert, Oriented X3 - Psychiatric Psychiatric exam: Normal affect, Normal mood - Skin Skin exam: Dry, Intact, Normal color, Warm Course Vital Signs 01/31/18 09:10 Temperature 98.4 F Pulse Rate 77 Respiratory 20 Rate Blood Pressure 126/70 Pulse Ox 99 - Reevaluation(s) Reevaluation #1: 01/31/18 09:57 The labs were reviewed No acute changes on the CBC or Coag's Glucose is 322. Patient informed Reevaluation #2: 01/31/18 10:04 The left anterior nostril was cauterized with good hemostasis Given she is on xarelto and risk for rebleed an anterior nasal pack was placed She will return in 3 days for removal we discussed homecare She is to call her PCP today about her glucose and her medications for diabetes She is to start checking her blood sugars again as she has not been Medical Decision Making - Lab Data Result diagrams: 01/31/18 09:20 01/31/18 09:20 Disposition Disposition: Discharge Clinical Impression: Anterior epistaxis, Hyperglycemia Condition: (1) Good Instructions: Nosebleed (ED) Additional Instructions: Return in three days for packing removal Return sooner if bleeding, pain, fever, concerns Call your doctor today to discuss your blood sugars and your medications Prescriptions: Cephalexin [Keflex] 500 mg PO BID #6 cap Forms: Patient Portal Access Time of Disposition: 10:07 Quality - Quality Measures Quality Measures: N/A - Blood Pressure Screening Does Patient Have Any of the Following: Active Dx of HTN Blood Pressure Classification: Pre-Hypertensive BP Reading Systolic Measurement: 126 Diastolic Measurement: 70 Screening for High Blood Pressure: Patient Exclusion, Hx of HTN [G9744]
[2018-01-31 09:31] LABS: BASO % 0.3 % (0-6); EOS % 2.1 % (0-6); GRAN % 48.7 % (47-80); HEMATOCRIT 40.1 % (35.0-47.0); HEMOGLOBIN 13.2 gm/dl (11.6-16.0); LYMPH % 42.1 % (16-45); MEAN CELL VOLUME 89.1 fl (81-97); MEAN CORPUSCULAR HEMOGLOBIN 29.3 pg (27-33); MEAN CORPUSCULAR HGB CONC 32.9 g/dl (32-36); MEAN PLATELET VOLUME 11.6 fl (7.4-10.4); MONO % 6.8 % (0-9); PLATELET COUNT 257 K/uL (130-400); RED CELL DISTRIBUTION WIDTH 13.7 % (11.5-14.5); WHITE BLOOD COUNT W/O DIFF 7.2 K/uL (4.2-12.2)
[2018-01-31 09:43] LABS: BLOOD UREA NITROGEN 12 mg/dL (8-23); CREATININE 0.6 mg/dL (0.5-0.9); EST GLOMERULAR FILTRATION RATE > 60 mL/min; PARTIAL THROMBOPLASTIN TIME 30.3 SECONDS (24.5-39.1); PROTHROMBIN TIME (PATIENT) 10.9 SECONDS (9.5-12.1)
[2018-01-31 09:46] LABS: GLUCOSE,RANDOM 322 mg/dL (74-109)
== END 2018-01-31 10:19 | disposition home or self-care (01) ==
LOC: ER 09:04
DX: R04.0 Epistaxis (principal); E11.65 Type 2 diabetes mellitus with hyperglycemia; I48.91 Unspecified atrial fibrillation; J44.9 Chronic obstructive pulmonary disease, unspecified; I25.2 Old myocardial infarction; I10 Essential (primary) hypertension; Z87.891 Personal history of nicotine dependence; Z79.84 Long term (current) use of oral hypoglycemic drugs
CPT/HCPCS: 30901; 80048; 85025; 85610; 85730; 99283; 99284

== ENCOUNTER 2018-02-03 06:25 | Emergency (ER) | payer MEDICARE, OTHER ==
--- NOTE | 2018-02-03 06:51 | Emergency Department Record ---
History of Present Illness - General Chief Complaint: Recheck - Other Stated Complaint: RECHECK Time Seen by Provider: 02/03/18 06:39 Source: Patient Mode of arrival: Ambulatory Limitations: No limitations - History of Present Illness Initial Comments: pt has nasal packing from 3 days ago. no further bleeding Onset/Timin -: Days(s) Initial Visit For: Other Returns Today for: Other Symptoms Since Prior Visit: Improved Associated Symptoms: None - Related Data Previous Rx's Medication Instructions Recorded Cephalexin [Keflex] 500 mg PO BID #6 cap 01/31/18 Allergies Allergy/AdvReac Type Severity Reaction Status Date / Time No Known Drug Allergies Allergy Verified 02/03/18 06:30 Travel Screening - Travel/Exposure Within Last 30 Days Have you traveled within the last 30 days?: No - Travel/Exposure Within Last Year Have you traveled outside the [place] in the last year?: No - Additonal Travel Details Have you been exposed to anyone with a communicable illness?: No - Travel Symptoms Symptom Screening: None Review of Systems Reviewed: No additional complaints except as noted below Constitutional: Reports: As per HPI. Denies: Chills, Fever, Malaise, Night sweats, Weakness, Weight change Eyes: Reports: As per HPI. Denies: Eye discharge, Eye pain, Photophobia, Vision change ENT: Reports: As per HPI. Denies: Congestion, Dental pain, Ear pain, Epistaxis , Hearing loss, Throat pain Respiratory: Reports: As per HPI. Denies: Cough, Dyspnea, Hemoptysis, Stridor, Wheezes Cardiovascular: Reports: As per HPI. Denies: Arrhythmia, Chest pain, Dyspnea on exertion, Edema, Murmurs, Orthopnea, Palpitations, Paroxysmal nocturnal dyspnea, Rheumatic Fever, Syncope Endocrine: Reports: As per HPI. Denies: Fatigue, Heat or cold intolerance, Polydipsia, Polyuria Gastrointestinal: Reports: As per HPI. Denies: Abdominal pain, Constipation, Diarrhea, Hematemesis, Hematochezia, Melena, Nausea, Vomiting Genitourinary: Reports: As per HPI. Denies: Abnormal menses, Discharge, Dyspareunia, Dysuria, Frequency, Hematuria, Incontinence, Retention, Urgency Musculoskeletal: Reports: As per HPI. Denies: Arthralgia, Back pain, Gout, Joint swelling, Myalgia, Neck pain Skin: Reports: As per HPI. Denies: Bruising, Change in color, Change in hair/ nails, Lesions, Pruritus, Rash Neurological: Reports: As per HPI. Denies: Abnormal gait, Confusion, Headache, Numbness, Paresthesias, Seizure, Tingling, Tremors, Vertigo, Weakness Psychiatric: Reports: As per HPI. Denies: Anxiety, Auditory hallucinations, Depression, Homicidal thoughts, Suicidal thoughts, Visual hallucinations Hematological/Lymphatic: Reports: As per HPI. Denies: Anemia, Blood Clots, Easy bleeding, Easy bruising, Swollen glands Past Medical History - SOCIAL HISTORY Smoking Status: Former smoker Alcohol Use: None - RESPIRATORY Hx Respiratory Disorders: Yes Hx Asthma: Yes Hx COPD: Yes ((start of emphysema)) Hx Pulmonary Embolism: Yes (01/2015) - CARDIOVASCULAR Hx Cardio Disorders: Yes Hx Abnormal EKG: Yes Hx Heart Attack: Yes (04/2015 while in hospital for urospesis) Hx Hypertension: Yes Hx Irregular Heartbeat: Yes (a-fib) Comment:: no comment - NEURO Hx Neuro Disorders: No Hx CVA: No Hx of Migraines: No - GI Hx GI Disorders: No Hx GI Bleed: No - Hx Genitourinary Disorders: Yes Hx UTI: Yes (04/2015 urosepsis) - ENDOCRINE Hx Endocrine Disorders: Yes Hx Diabetes: Yes - MUSCULOSKELETAL Hx Musculoskeletal Disorders: No Hx Arthritis: No - PSYCH Hx Psych Problems: No - HEMATOLOGY/ONCOLOGY Hx Hematology/Oncology Disorders: Yes Hx Anemia: Yes (currently) Hx Blood Transfusions: Yes (09/2015 2 units PRBC's) Family Medical History Any Significant Family History?: No Hx Cancer: Mother *Cancer Comment: gastric Hx Diabetes: Mother Hx Stroke: Mother Physical Exam - General General Appearance: Alert, Oriented x3, Cooperative, No acute distress - Head Head exam: Normal inspection - Eye Eye exam: Normal appearance, PERRL, EOMI Pupils: Normal accommodation - ENT ENT exam: Normal exam, Mucous membranes moist, Normal external ear exam, Normal orophraynx Ear exam: Normal external inspection. negative: External canal tenderness Nasal Exam: Normal inspection, Other (nasal packing in place). negative: Discharge, Sinus tenderness Mouth exam: Normal external inspection, Tongue normal Teeth exam: Normal inspection. negative: Dental caries Throat exam: Normal inspection. negative: Tonsillar erythema, Tonsillar exudate - Neck Neck exam: Normal inspection, Full ROM. negative: Tenderness - Respiratory Respiratory exam: Normal lung sounds bilaterally. negative: Respiratory distress - Cardiovascular Cardiovascular Exam: Regular rate, Normal rhythm, Normal heart sounds - GI/Abdominal GI/Abdominal exam: Soft, Normal bowel sounds. negative: Tenderness - Rectal Rectal exam: Deferred - exam: Deferred - Extremities Extremities exam: Normal inspection, Full ROM, Normal capillary refill. negative: Tenderness - Back Back exam: Reports: Normal inspection, Full ROM. Denies: Muscle spasm, Rash noted, Tenderness - Neurological Neurological exam: Alert, Normal gait, Oriented X3, Reflexes normal - Psychiatric Psychiatric exam: Normal affect, Normal mood - Skin Skin exam: Dry, Intact, Normal color, Warm Course Vital Signs 02/03/18 06:31 Temperature 97.3 F L Pulse Rate [ 81 Pulse Ox Probe] Respiratory 20 Rate Blood Pressure 136/49 [Left Arm] Pulse Ox 99 - Reevaluation(s) Reevaluation #1: 02/03/18 06:51 packing removed without incident. no bleed on it Disposition Disposition: Discharge Clinical Impression: Encounter for removal of nasal packing Disposition: Home, Self-Care Condition: (1) Good Instructions: Nosebleed (ED) Additional Instructions: follow up with family doctor. return sooner if worse. no blowing or picking of nose. Quality - Quality Measures Quality Measures: N/A - Blood Pressure Screening Does Patient Have Any of the Following: No Blood Pressure Classification: Pre-Hypertensive BP Reading Systolic Measurement: 136 Diastolic Measurement: 49 Screening for High Blood Pressure: < Pre-Hypertensive BP, F/U Documented > [ G8950] Pre-Hypertensive Follow-up Interventions: Follow-up with rescreen every year.
== END 2018-02-03 06:54 | disposition home or self-care (01) ==
LOC: ER 06:25
DX: Z48.00 Encounter for change or removal of nonsurgical wound dressing (principal); R04.0 Epistaxis; E11.9 Type 2 diabetes mellitus without complications; I10 Essential (primary) hypertension; I48.91 Unspecified atrial fibrillation; J44.9 Chronic obstructive pulmonary disease, unspecified; I25.2 Old myocardial infarction; Z87.891 Personal history of nicotine dependence; Z79.84 Long term (current) use of oral hypoglycemic drugs
CPT/HCPCS: 99282

== ENCOUNTER 2018-06-27 21:20 | Emergency (ER) | payer MEDICARE, OTHER ==
[2018-06-27] MEDS ORDERED: 0.9 % SODIUM CHLORIDE 1,000 ML BAG IV ONE (21:39)
[2018-06-27] MEDS ORDERED: ONDANSETRON HCL IV 4 MG/2 ML VIAL IV ONE (21:39)
--- NOTE | 2018-06-27 21:43 | Emergency Department Record ---
History of Present Illness - General Chief complaint: Nausea, Vomiting, Diarrhea Stated complaint: n/d/weak Time Seen by Provider: 06/27/18 21:36 Source: Patient Mode of Arrival: Ambulatory Limitations: No limitations - History of Present Illness Initial comments: The patient is here due to a one day hx of frequent watery diarrhea. The diarrhea started last evening and is quite frequent. She has had mild nausea but no vomiting, AP, or fever. The patient denies any blood in her stool but has felt weak today. She also denies any new or recent medicines, foods, bad food exposure, oral abx's or travel. complaint: Diarrhea, Nausea Onset/Timin -: Days(s) Description of Vomiting: Watery - Related Data Home Medications Medication Instructions Recorded Confirmed Last Taken Fluconazole [Diflucan] 150 mg PO ASDIR PRN 06/27/18 06/27/18 Unknown Previous Rx's Medication Instructions Recorded Ondansetron [Zofran Odt] 4 mg SL .Q4-6H PRN #12 tab.rapdis 06/27/18 Allergies Allergy/AdvReac Type Severity Reaction Status Date / Time No Known Drug Allergies Allergy Verified 02/03/18 06:30 Travel Screening - Travel/Exposure Within Last 30 Days Have you traveled within the last 30 days?: No Review of Systems Constitutional: Denies: Chills, Fever Eyes: Denies: Eye discharge ENT: Denies: Congestion Respiratory: Denies: Cough, Dyspnea Cardiovascular: Denies: Arrhythmia, Chest pain Endocrine: Reports: Fatigue Gastrointestinal: Reports: Diarrhea, Nausea. Denies: Vomiting Genitourinary: Denies: Dysuria Musculoskeletal: Denies: Back pain Past Medical History - SOCIAL HISTORY Smoking Status: Former smoker Alcohol Use: None Drug Use: None - RESPIRATORY Hx Respiratory Disorders: Yes Hx Asthma: Yes Hx COPD: Yes ((start of emphysema)) Hx Pulmonary Embolism: Yes (01/2015) - CARDIOVASCULAR Hx Cardio Disorders: Yes Hx Abnormal EKG: Yes Hx Heart Attack: Yes (04/2015 while in hospital for urospesis) Hx Hypertension: Yes Hx Irregular Heartbeat: Yes (a-fib) Comment:: no comment - NEURO Hx Neuro Disorders: No Hx CVA: No Hx of Migraines: No - GI Hx GI Disorders: No Hx GI Bleed: No - Hx Genitourinary Disorders: Yes Hx UTI: Yes (04/2015 urosepsis) - ENDOCRINE Hx Endocrine Disorders: Yes Hx Diabetes: Yes - MUSCULOSKELETAL Hx Musculoskeletal Disorders: No Hx Arthritis: No - PSYCH Hx Psych Problems: No - HEMATOLOGY/ONCOLOGY Hx Hematology/Oncology Disorders: Yes Hx Anemia: Yes (currently) Hx Blood Transfusions: Yes (09/2015 2 units PRBC's) Family Medical History Any Significant Family History?: Yes Hx Cancer: Mother *Cancer Comment: gastric Hx Diabetes: Mother Hx Stroke: Mother Physical Exam - General General Appearance: Alert, Oriented x3, Cooperative, No acute distress (The patient is very comfortable in no distress.) - Head Head exam: Atraumatic, Normocephalic, Normal inspection - Eye Eye exam: Normal appearance, PERRL, EOMI - ENT Throat exam: Normal inspection. negative: Tonsillar erythema, Tonsillar exudate - Neck Neck exam: Normal inspection, Full ROM. negative: Tenderness - Respiratory Respiratory exam: Normal lung sounds bilaterally. negative: Respiratory distress - Cardiovascular Cardiovascular Exam: Regular rate, Normal rhythm, Normal heart sounds - GI/Abdominal GI/Abdominal exam: Soft, Normal bowel sounds. negative: Rebound, Rigid, Tenderness - Extremities Extremities exam: Normal inspection, Full ROM, Normal capillary refill. negative: Tenderness - Neurological Neurological exam: Alert. negative: Motor sensory deficit Course Vital Signs 06/27/18 21:26 Temperature 98.3 F Pulse Rate [ 108 H Pulse Ox Probe] Respiratory 28 H Rate Blood Pressure 131/87 [Left Arm] Pulse Ox 95 - Reevaluation(s) Reevaluation #1: The patient is doing better at this time. Her nausea is improved and she is resting comfortably in no pain or discomfort. 06/27/18 22:11 Reevaluation #2: The patient is doing very well. She denies any AP, nausea, or vomiting but has had some loose watery stool here. I did explain to the patient that her test results are all WNL's. She is to take a mild anti-diarrheal agent at home and see her PCP if not better in 3 days. 06/27/18 22:51 Medical Decision Making - Data Complexity MDM Data: Labs Ordered and/or Reviewed - Lab Data Result diagrams: 06/27/18 21:45 06/27/18 21:45 Disposition Disposition: Discharge Clinical Impression: Diarrhea Qualifiers: Diarrhea type: unspecified type Qualified Code(s): R19.7 - Diarrhea, unspecified Disposition: Home, Self-Care Condition: (2) Stable Instructions: Acute Diarrhea (ED) Additional Instructions: Please continue your regular medicines and use an anti-diarrhea agent like Kaopectate for 2 days if needed. Please see your family doctor on Sunday if not better. Return to the ER for any worsening diarrhea, or any vomiting, abdominal pain, or fever. Please use the Zofran for nausea if needed. Prescriptions: Ondansetron [Zofran Odt] 4 mg SL .Q4-6H PRN #12 tab.rapdis PRN Reason: Nausea Forms: Patient Portal Access Time of Disposition: 22:55 Quality - Quality Measures Quality Measures: N/A - Blood Pressure Screening View Details: Yes Does Patient Have Any of the Following: No Blood Pressure Classification: Normal BP Reading Systolic Measurement: 108 Diastolic Measurement: 58 Screening for High Blood Pressure: < Normal BP, F/U Not Required > [G8783]
[2018-06-27 21:54] LABS: BASO % 0.2 % (0-6); EOS % 3.2 % (0-6); GRAN % 56.4 % (47-80); HEMATOCRIT 42.9 % (35.0-47.0); HEMOGLOBIN 14.4 gm/dl (11.6-16.0); LYMPH % 33.9 % (16-45); MEAN CELL VOLUME 90.5 fl (81-97); MEAN CORPUSCULAR HEMOGLOBIN 30.4 pg (27-33); MEAN CORPUSCULAR HGB CONC 33.6 g/dl (32-36); MEAN PLATELET VOLUME 11.6 fl (7.4-10.4); MONO % 6.3 % (0-9); PLATELET COUNT 292 K/uL (130-400); RED BLOOD COUNT 4.74 M/uL (3.80-5.40)
[2018-06-27 22:06] LABS: PROTHROMBIN TIME (PATIENT) 10.3 SECONDS (9.5-12.1)
[2018-06-27 22:07] LABS: BILIRUBIN,TOTAL 0.4 mg/dL (0.2-1.0)
[2018-06-27 22:08] LABS: TOTAL PROTEIN 7.5 g/dL (6.6-8.7)
[2018-06-27 22:13] LABS: ALB/GLOB RATIO 1.3 (1.1-1.8); ALBUMIN 4.3 g/dL (4.0-5.0)
[2018-06-27] MEDS ORDERED: LOPERAMIDE 2 MG CAPSULE PO ONE (23:03)
== END 2018-06-27 23:10 | disposition home or self-care (01) ==
LOC: ER 21:20
DX: R19.7 Diarrhea, unspecified (principal); R11.2 Nausea with vomiting, unspecified; I48.91 Unspecified atrial fibrillation; I10 Essential (primary) hypertension; J44.9 Chronic obstructive pulmonary disease, unspecified; E11.9 Type 2 diabetes mellitus without complications; Z87.891 Personal history of nicotine dependence
CPT/HCPCS: 99284 ×2; 96374; 96361; 83690; 85025; 85730; 85610; 80053; J2405; J7030

== ENCOUNTER 2018-10-24 16:05 | Observation (INO) | payer MEDICARE, OTHER ==
[2018-10-24] MEDS ORDERED: AMPICILLIN SODIUM/SULBACTAM NA 3 G in 0.9 % SODIUM CHLORIDE 100ML 100 ML IVPB ONE (16:22)
--- NOTE | 2018-10-24 16:28 | Emergency Department Record ---
History of Present Illness - General Chief Complaint: Ankle/Foot Injury Stated Complaint: TOE PAIN Time Seen by Provider: 10/24/18 16:13 Source: Patient Mode of Arrival: Ambulatory Limitations: No limitations - History of Present Illness Initial Comments: The patient has had L foot big toe pain for 2 days. She woke up with the big toe painful and red yesterday. The patient denies any injury, trauma or any fevers. She has no hx of similar issues. There has been no foot issues in the past and the patient is a poorly controlled diabetic. MD Complaint: Other Onset/Timin -: Days(s) Place: Home Severity: Moderate Severity scale (1-10): 8 Improves With: Nothing Worsens With: Nothing - Related Data Previous Rx's Medication Instructions Recorded Ondansetron [Zofran Odt] 4 mg SL .Q4-6H PRN #12 tab.rapdis 06/27/18 Allergies Allergy/AdvReac Type Severity Reaction Status Date / Time No Known Drug Allergies Allergy Verified 10/24/18 16:07 Travel Screening - Travel/Exposure Within Last 30 Days Have you traveled within the last 30 days?: No Review of Systems Constitutional: Denies: Chills, Fever Eyes: Denies: Eye discharge ENT: Denies: Congestion Respiratory: Denies: Cough, Dyspnea Cardiovascular: Denies: Arrhythmia Endocrine: Denies: Fatigue Gastrointestinal: Denies: Abdominal pain Genitourinary: Denies: Dysuria Musculoskeletal: Denies: Back pain Skin: Denies: Bruising Past Medical History - SOCIAL HISTORY Smoking Status: Former smoker Alcohol Use: Rare Drug Use: None - RESPIRATORY Hx Respiratory Disorders: Yes Hx Asthma: Yes Hx COPD: Yes ((start of emphysema)) Hx Pulmonary Embolism: Yes (01/2015) - CARDIOVASCULAR Hx Cardio Disorders: Yes Hx Abnormal EKG: Yes Hx Heart Attack: Yes Hx Hypertension: Yes Hx Irregular Heartbeat: Yes (a-fib) - NEURO Hx Neuro Disorders: No Hx CVA: No Hx of Migraines: No - GI Hx GI Disorders: No Hx GI Bleed: No - Hx Genitourinary Disorders: Yes Hx UTI: Yes - ENDOCRINE Hx Endocrine Disorders: Yes Hx Diabetes: Yes - MUSCULOSKELETAL Hx Musculoskeletal Disorders: No Hx Arthritis: No - PSYCH Hx Psych Problems: No - HEMATOLOGY/ONCOLOGY Hx Hematology/Oncology Disorders: Yes Hx Anemia: Yes (currently) Hx Blood Transfusions: Yes Family Medical History Any Significant Family History?: Yes Hx Cancer: Mother *Cancer Comment: gastric Hx Diabetes: Mother Hx Stroke: Mother Physical Exam - General General Appearance: Alert, Oriented x3, Cooperative, No acute distress - Head Head exam: Atraumatic, Normocephalic, Normal inspection - Eye Eye exam: Normal appearance, PERRL - ENT Throat exam: Normal inspection. negative: Tonsillar erythema, Tonsillar exudate - Neck Neck exam: Normal inspection, Full ROM. negative: Tenderness - Respiratory Respiratory exam: Normal lung sounds bilaterally. negative: Respiratory distress - Cardiovascular Cardiovascular Exam: Regular rate, Normal rhythm, Normal heart sounds - GI/Abdominal GI/Abdominal exam: Soft - Extremities Extremities exam: Full ROM, Normal capillary refill, Tenderness (to the L 1st toe. ), Other (The L DP pulse is normal. There is mild erythema and tenderness to the distal 2nd-4th toes also. ). negative: Normal inspection (There is erythema, edema and slight drainage to the distal L 1st toe. The toe is mildy tender and erythematous. ), Pedal edema - Back Back exam: Denies: Normal inspection - Neurological Neurological exam: Alert. negative: Motor sensory deficit Course Vital Signs 10/24/18 16:09 Temperature 98.8 F Pulse Rate 86 Respiratory 20 Rate Blood Pressure 160/88 Pulse Ox 97 - Reevaluation(s) Reevaluation #1: The patient is doing OK at this time. I did discuss the case with Dr. Ceron and he does agree to the plan to admit for IV abx. 10/24/18 17:32 Reevaluation #2: I also did discuss the fact I did order an arterial leg study with Dr. Ceron. He will F/U on the results. 10/24/18 17:48 Medical Decision Making - Data Complexity MDM Data: Labs Ordered and/or Reviewed, X-Ray Ordered and/or Reviewed - Lab Data Result diagrams: 10/24/18 16:15 10/24/18 16:15 - Radiology Data Radiology results: Report reviewed (L foot: Neg for acute changes. Deg joint dz. ) Disposition Disposition: Admit Clinical Impression: Foot infection Disposition: Still a Patient at [facility] Decision to Admit: Admit from ER Decision to Admit Date: 10/24/18 Decision to Admit Time: 17:49 Accepting Physician: Fernander Time Discussed w/Accepting Physician: 17:49 Condition: (2) Stable Forms: Patient Portal Access Time of Disposition: 17:49 Quality - Quality Measures Quality Measures: N/A - Blood Pressure Screening View Details: Yes Does Patient Have Any of the Following: No Blood Pressure Classification: Pre-Hypertensive BP Reading Systolic Measurement: 160 Diastolic Measurement: 88 Screening for High Blood Pressure: < Pre-Hypertensive BP, F/U Documented > [ G8950] Pre-Hypertensive Follow-up Interventions: Referral to alternative/primary care provider.
[2018-10-24 16:36] LABS: BASO % 0.3 % (0-6); EOS % 2.1 % (0-6); GRAN % 42.7 % (47-80); HEMATOCRIT 39.6 % (35.0-47.0); HEMOGLOBIN 13.5 gm/dl (11.6-16.0); LYMPH % 48.5 % (16-45); MEAN CELL VOLUME 89.8 fl (81-97); MEAN CORPUSCULAR HEMOGLOBIN 30.6 pg (27-33); MEAN CORPUSCULAR HGB CONC 34.1 g/dl (32-36); MEAN PLATELET VOLUME 12.1 fl (7.4-10.4); MONO % 6.4 % (0-9); PLATELET COUNT 270 K/uL (130-400); RED BLOOD COUNT 4.41 M/uL (3.80-5.40); RED CELL DISTRIBUTION WIDTH 13.5 % (11.5-14.5); WHITE BLOOD COUNT W/O DIFF 7.3 K/uL (4.2-12.2)
[2018-10-24 17:34] LABS: BLOOD UREA NITROGEN 20 mg/dL (8-23); CREATININE 0.9 mg/dL (0.5-0.9); EST GLOMERULAR FILTRATION RATE > 60 mL/min
[2018-10-24 17:37] LABS: GLUCOSE,RANDOM 298 mg/dL (74-109)
[2018-10-24 17:40] LABS: C-REACTIVE PROTEIN 0.45 mg/dL (<0.5)
[2018-10-24] MEDS ORDERED: ACETAMINOPHEN 325 MG TAB PO PRN (18:47)
[2018-10-24] MEDS ORDERED: ONDANSETRON 4 MG ODT TABLET SL PRN (18:47)
[2018-10-24] MEDS: AMPICILLIN SODIUM/SULBACTAM NA 1.5 G in 0.9 % SODIUM CHLORIDE 100ML 100 ML IVPB SCH (19:28)
[2018-10-24] MEDS: METFORMIN 500 MG TABLET PO SCH (21:52)
[2018-10-24] MEDS: GLIPIZIDE XL 5 MG TABLET PO SCH (21:54)
[2018-10-24] MEDS ORDERED: RIVAROXABAN 15 MG TABLET PO SCH (22:00)
[2018-10-24] MEDS ORDERED: RIVAROXABAN 20 MG TABLET PO SCH (22:00)
[2018-10-25] MEDS: AMPICILLIN SODIUM/SULBACTAM NA 1.5 G in 0.9 % SODIUM CHLORIDE 100ML 100 ML IVPB SCH ×2 (00:18→06:10)
--- NOTE | 2018-10-25 05:21 | RADIOLOGY REPORT ---
EXAM: LEFT FOOT HISTORY: PAIN LEFT BIG TOE, NO TRAUMA. TECHNIQUE: Three views of the left foot were obtained. Comparison: None. FINDINGS: Diffuse osteopenia is seen consistent with osteoporosis. Prominent plantar calcaneal spur. Mild degenerative change at some of the TMT articulations. All of the MTP joints are held in relative dorsiflexion. No definite fracture, dislocation, or destructive lesion seen. IMPRESSION: 1. OSTEOPOROSIS. 2. DEGENERATIVE CHANGES NOTED ABOVE. JOB NUMBER: [id number] [facility]
--- NOTE | 2018-10-25 05:36 | US ARTERIAL DOPPLER REPORT ---
EXAM: EMERGENCY BILATERAL LOWER EXTREMITY ARTERIAL DOPPLER ULTRASOUND HISTORY: LEFT FOOT PAIN. TECHNIQUE: Sonographic evaluation of the arterial system of the bilateral lower extremities was performed with the addition of Doppler and spectral analysis. Images were obtained with the vascular probe oriented 60 degrees. FINDINGS: 3 Right Waveform Left Waveform Common Femoral Artery 183.7 cm/s Biphasic 140.2 cm/s Biphasic Profunda Femoral Artery 106.9 cm/s Monophasic 86.6 cm/s Biphasic Proximal Superficial Femoral Artery 165.5 cm/s Biphasic 142.9 cm/s Biphasic Mid Superficial Femoral Artery 153.9 cm/s Biphasic 135.9 cm/s Biphasic Distal Superficial Femoral Artery 90.8 cm/s Biphasic 96.2 cm/s Biphasic Popliteal Artery 85.6 cm/s Biphasic 126.5 cm/s Biphasic Anterior Tibial Artery 44.6 cm/s Monophasic 39.6 cm/s Monophasic Posterior Tibial Artery 93.0 cm/s Biphasic 82.2 cm/s Biphasic Peroneal Artery 69.4 cm/s Biphasic 105.6 cm/s Monophasic Dorsalis Pedis Artery 90.8 cm/s Monophasic 51.0 cm/s Monophasic The right JANET is 0.9. The left JANET is 1.0. IMPRESSION: EVIDENCE OF PERIPHERAL VASCULAR DISEASE BILATERALLY. ON THE RIGHT THERE IS ELEVATED PEAK SYSTOLIC VELOCITY WITHIN THE COMMON FEMORAL WELL MID TO UPPER SUPERFICIAL FEMORAL ARTERY AND THERE ARE MONOPHASIC WAVEFORMS SEEN IN BOTH THE DEEP FEMORAL WELL IN THE ANTERIOR TIBIAL AND DORSALIS PEDIS ARTERIES. ON THE LEFT, THERE IS BORDERLINE ELEVATED PEAK SYSTOLIC VELOCITY IN THE COMMON AND PROXIMAL SUPERFICIAL FEMORAL ARTERIES AND MONOPHASIC WAVEFORMS IN THE ANTERIOR TIBIAL AND PERONEAL ARTERIES OF THE CALF WELL THE DORSALIS PEDIS ARTERY. THE ANKLE BRACHIAL INDEX ON THE RIGHT IS ALSO AT THE LOW END OF THE NORMAL RANGE. DEPENDING ON THE CLINICAL SETTING, FOLLOW-UP CTA OF THE LOWER EXTREMITIES MAY BE USEFUL FOR FURTHER ASSESSMENT. JOB NUMBER: [id number] [facility]
--- NOTE | 2018-10-25 08:42 | History & Physical ---
History of Present Illness - Date of Service Date of Service for History & Physical: 10/25/18 - History of Present Illness Admitting Diagnosis: 1. Acute L Foot and Toe Cellulitis. History of Present Illness: Mrs. Ireland is a 68 y/o diabetic patient who presented to ED after being seen by her primary care doctor with complaint of left great toe swelling, mild pain and some bleeding from under the nail. The patient says that she has some numbness of her feet but has not had any injury to her feet over the past few days. The patient has poorly controlled diabetes and says that she refuses to use insulin. She does not check her serum glucose at home and cannot recall her last A1c. On arrival to the ED the patient's labs were within normal limits. Xray was negative for soft tissue swelling or fracture and Arterial doppler noted borderline ankle brachial index. The patient was started on Unasyn IV and admitted for further observation. Vital signs on admission: BP 160/88 HR 86 RR 20 T 98.8 Sats 97% RA PCP: Dr. Pereyra. Travel Screening - Travel/Exposure Within Last 30 Days Have you traveled within the last 30 days?: No - Travel/Exposure Within Last Year Have you traveled outside the [place] in the last year?: No - Additonal Travel Details Have you been exposed to anyone with a communicable illness?: No - Travel Symptoms Symptom Screening: Bleeding Review of Systems Constitutional: Denies: Chills, Fever Eyes: Denies: Eye discharge ENT: Denies: Congestion Respiratory: Denies: Cough, Dyspnea Cardiovascular: Denies: Arrhythmia Endocrine: Denies: Fatigue Gastrointestinal: Denies: Abdominal pain Genitourinary: Denies: Dysuria Musculoskeletal: Denies: Back pain Skin: Denies: Bruising Past Medical History - SOCIAL HISTORY Smoking Status: Former smoker Alcohol Use: Occasional Alcohol Use Comment: beer Drug Use: None - RESPIRATORY Hx Respiratory Disorders: Yes Hx Asthma: Yes Hx COPD: Yes ((start of emphysema)) Hx Pulmonary Embolism: Yes (01/2015) - CARDIOVASCULAR Hx Cardio Disorders: Yes Hx Abnormal EKG: Yes Hx Heart Attack: Yes (few years ago) Hx Hypertension: Yes Hx Irregular Heartbeat: Yes (a-fib) - NEURO Hx Neuro Disorders: No Hx CVA: No Hx of Migraines: No - GI Hx GI Disorders: No Hx GI Bleed: No - Hx Genitourinary Disorders: Yes Hx UTI: Yes (with sepsis) - ENDOCRINE Hx Endocrine Disorders: Yes Hx Diabetes: Yes Hx Thyroid Disease: No - MUSCULOSKELETAL Hx Musculoskeletal Disorders: No Hx Arthritis: No (especially left hip is "bone on bone") - PSYCH Hx Psych Problems: No - HEMATOLOGY/ONCOLOGY Hx Hematology/Oncology Disorders: Yes Hx Anemia: Yes (current hgb 13.5) Hx Blood Transfusions: Yes Family Medical History Any Significant Family History?: Yes Hx Cancer: Mother *Cancer Comment: gastric Hx Diabetes: Mother Hx Stroke: Mother H&P Meds/Allergies - Allergies Allergies: Allergies Allergy/AdvReac Type Severity Reaction Status Date / Time No Known Drug Allergies Allergy Verified 10/24/18 16:07 - Home Medications Home Medications Medication Instructions Recorded Confirmed Last Taken Ferrous Sulfate 325 mg PO DAILY 10/25/18 10/25/18 Unknown Previous Rx's Medication Instructions Recorded Ondansetron [Zofran Odt] 4 mg SL .Q4-6H PRN #12 tab.rapdis 06/27/18 - Active Medications Active Medications: Current Medications Acetaminophen (Tylenol 325mg) 650 mg PO Q6H PRN PRN Reason: PAIN - MILD(1-4)/FEVER Aspirin (Ecotrin (Ec)) 81 mg PO DAILY [facility] Atenolol (Tenormin) 50 mg PO DAILY [facility] Glipizide (Glucotrol Xl) 5 mg PO BID [facility] Last Admin: 10/24/18 21:54 Dose: 5 mg Ampicillin Sodium/Sulbactam (Sodium 1.5 g/ Sodium Chloride) 100 mls @ 200 mls/ hr IVPB Q6H [facility] Stop: 10/29/18 18:48 Last Infusion: 10/25/18 06:51 Dose: Infused Lisinopril (Zestril) 10 mg PO DAILY [facility] Metformin HCl (Glucophage Ir) 1,000 mg PO BID [facility] Last Admin: 10/24/18 21:52 Dose: 1,000 mg Ondansetron HCl (Zofran Odt) 4 mg SL .Q4-6H PRN PRN Reason: NAUSEA Rivaroxaban (Xarelto) 15 mg PO QHS [facility] Last Admin: 10/24/18 21:54 Dose: 15 mg Physical Exam - Vital Signs Vital Signs: Vital Signs - Last 24 Hrs Temp Pulse Pulse Resp BP BP Pulse Ox 10/25/18 07:50 96.8 F L 82 16 152/81 96 10/25/18 05:00 97.7 F 82 17 154/83 99 10/24/18 19:09 97.8 F 84 17 155/74 96 10/24/18 16:09 98.8 F 86 20 160/88 97 - General General Appearance: Alert, Oriented x3, Cooperative, No acute distress Limitations: No limitations - Head Head exam: Atraumatic, Normocephalic, Normal inspection - Eye Eye exam: Normal appearance, PERRL - ENT Throat exam: Normal inspection. negative: Tonsillar erythema, Tonsillar exudate - Neck Neck exam: Normal inspection, Full ROM. negative: Tenderness - Respiratory Respiratory exam: Normal lung sounds bilaterally. negative: Respiratory distress - Cardiovascular Cardiovascular Exam: Regular rate, Normal rhythm, Normal heart sounds Peripheral Pulses: 3+: Radial (R), Radial (L), Dorsalis Pedis (R), Dorsalis Pedis (L) - GI/Abdominal GI/Abdominal exam: Soft - Extremities Extremities exam: Full ROM, Normal capillary refill, Tenderness (to the L 1st toe. ), Other (The L DP pulse is normal. There is mild erythema and tenderness to the distal 2nd-4th toes also. ). negative: Normal inspection (There is erythema, edema and slight drainage to the distal L 1st toe. The toe is mildy tender and erythematous. ), Pedal edema - Back Back exam: Denies: Normal inspection - Neurological Neurological exam: Alert. negative: Motor sensory deficit Results - Labs Result Diagrams: 10/24/18 16:15 10/24/18 16:15 Labs Last 24 Hours: Laboratory Results - last 24 hr 10/24/18 10/24/18 10/24/18 16:15 16:15 21:43 WBC 7.3 RBC 4.41 Hgb 13.5 Hct 39.6 MCV 89.8 MCH 30.6 MCHC 34.1 RDW 13.5 Plt Count 270 MPV 12.1 H Gran % 42.7 L Lymphocytes % 48.5 H Monocytes % 6.4 Eosinophils % 2.1 Basophils % 0.3 Sodium 139 Potassium 4.5 Chloride 102 Carbon Dioxide 20.0 L Anion Gap 17.0 H BUN 20 Creatinine 0.9 Estimated GFR > 60 POC Glucose 348 H Random Glucose 298 H Calcium 9.8 C-Reactive Protein 0.45 VTE H&P Assessment - Risk for VTE Risk for VTE: Yes Risk Level: High Risk Assessment Date: 10/25/18 Risk Assessment Time: 11:04 VTE Orders Placed or Will Be Placed: Yes Plan - Inpatient Certification Inpatient Certification: Admit to inpatient care: Based on my medical assessment, after consideration of patient's risk factors (age, co-morbidities and patient presenting symptoms and acuity), I expect that this patient will remain in the hospital greater than or equal to two midnights and that the services needed warrant inpatient care because: Patient Risk Factors: [] Estimated length of stay: [] The patient may reasonably be expected to be discharged or transferred to a hospital within 96 hours after admission to [facility]. Services needed: [] Post hospital care (if known): [] I certify that my determination is in accordance with my understanding of Medicare requirements for reasonable and necessary inpatient services. - Detailed Diagnosis and Plan (1) Cellulitis of great toe, left Current Visit: Yes Status: Acute Base Code: L03.032 - CELLULITIS OF LEFT TOE Comment: 10/25/18: - Left great toe with hypertrophy of the nail, swelling, non-tender. Likely localized bacterial and fungal. Does not look ischemic. - Xray - no edema or indication osteomylitis - Arterial doppler: bilateral PVD, JANET bilaterally on the low end of normal. - Follow up cta may be warranted if no resolution. - Keflex 500mg Q6H x 7 days, in addition to topical Clotrimazole BID. - Avoidance of injury with daily gauze dressings. - Podiatry follow up in 2 weeks, PCP within 3-5 days. (2) Poorly controlled type 2 diabetes mellitus Current Visit: Yes Status: Acute Base Code: E11.65 - TYPE 2 DIABETES MELLITUS WITH HYPERGLYCEMIA Comment: 10/25/18: - Hba1c 02/2018: 12% - Home medications: Glucotrol 5mg BID, Metformin 1000mg BID, noncompliant with Januvia. - Pt refusing insulin therapy - CBG ACHs, ADA diet (3) A-fib Current Visit: No Status: Acute Base Code: I48.91 - UNSPECIFIED ATRIAL FIBRILLATION Comment: 10/25/2018 - continue BB, and anticoagulation with Xarelto. (4) DVT prophylaxis Current Visit: No Status: Acute Base Code: [id number] - Comment: 10/25/18: - on therapeutic dose of Xarelto. (5) Full code status Current Visit: No Status: Acute Base Code: Z78.9 - OTHER SPECIFIED HEALTH STATUS Comment: 10/25/18: - Full code. - Disposition The patient is not septic and this infection appears to be localized to the left great toe. She ideally needs systemic antifungal therapy for what appears to dermatophyte infection but in the short term abx to treat acute infection and topical antifungal.
[2018-10-25] MEDS: CEPHALEXIN 500 MG CAPSULE PO SCH ×2 (09:50→14:26)
[2018-10-25] MEDS: METFORMIN 500 MG TABLET PO SCH (09:51)
[2018-10-25] MEDS: GLIPIZIDE XL 5 MG TABLET PO SCH (09:51)
[2018-10-25] MEDS ORDERED: CLOTRIMAZOLE 1% 30 GM CREAM TP SCH (10:00)
[2018-10-25] MEDS ORDERED: ATENOLOL 50 MG TABLET PO SCH (10:00)
[2018-10-25] MEDS ORDERED: LISINOPRIL 10 MG TABLET PO SCH (10:00)
[2018-10-25] MEDS ORDERED: ASPIRIN 81 MG TABEC PO SCH (10:00)
[2018-10-25] MEDS ORDERED: ONDANSETRON 4 MG ODT TABLET SL PRN (10:15)
--- NOTE | 2018-10-25 13:43 | Discharge Summary ---
Providers Discharge Summary Date: 10/25/18 Date of admission: 10/24/18 18:10 Attending physician: MARY ANN HARDING Primary care physician: TYLOR PEREYRA D.O. Physical Exam - Vital Signs Vital Signs: Vital Signs - Last 24 Hrs Temp Pulse Pulse Resp BP BP Pulse Ox 10/25/18 09:00 16 10/25/18 07:50 96.8 F L 82 16 152/81 96 10/25/18 05:00 97.7 F 82 17 154/83 99 10/24/18 19:09 97.8 F 84 17 155/74 96 10/24/18 16:09 98.8 F 86 20 160/88 97 - General General Appearance: Alert, Oriented x3, Cooperative, No acute distress Limitations: No limitations - Head Head exam: Atraumatic, Normocephalic, Normal inspection - Eye Eye exam: Normal appearance, PERRL - ENT Throat exam: Normal inspection. negative: Tonsillar erythema, Tonsillar exudate - Neck Neck exam: Normal inspection, Full ROM. negative: Tenderness - Respiratory Respiratory exam: Normal lung sounds bilaterally. negative: Respiratory distress - Cardiovascular Cardiovascular Exam: Regular rate, Normal rhythm, Normal heart sounds Peripheral Pulses: 3+: Radial (R), Radial (L), Dorsalis Pedis (R), Dorsalis Pedis (L) - GI/Abdominal GI/Abdominal exam: Soft - Extremities Extremities exam: Full ROM, Normal capillary refill, Tenderness (to the L 1st toe. ), Other (The L DP pulse is normal. There is mild erythema and tenderness to the distal 2nd-4th toes also. ). negative: Normal inspection (There is erythema, edema and slight drainage to the distal L 1st toe. The toe is mildy tender and erythematous. ), Pedal edema - Back Back exam: Denies: Normal inspection - Neurological Neurological exam: Alert. negative: Motor sensory deficit Hospitalization - Hospitalization Admission Diagnosis: 1. Acute L Foot and Toe Cellulitis. - Problem List/Discharge Diagnosis (1) Cellulitis of great toe, left Current Visit: Yes Status: Acute Base Code: L03.032 - CELLULITIS OF LEFT TOE Comment: 10/25/18: - Left great toe with hypertrophy of the nail, swelling, non-tender. Likely localized bacterial and fungal. Does not look ischemic. - Xray - no edema or indication osteomylitis - Arterial doppler: bilateral PVD, JANET bilaterally on the low end of normal. - Follow up cta may be warranted if no resolution. - Keflex 500mg Q6H x 7 days, in addition to topical Clotrimazole BID. - Avoidance of injury with daily gauze dressings. - Podiatry follow up in 2 weeks, PCP within 3-5 days. (2) Poorly controlled type 2 diabetes mellitus Current Visit: Yes Status: Acute Base Code: E11.65 - TYPE 2 DIABETES MELLITUS WITH HYPERGLYCEMIA Comment: 10/25/18: - Hba1c 02/2018: 12% - Home medications: Glucotrol 5mg BID, Metformin 1000mg BID, noncompliant with Januvia. - Pt refusing insulin therapy - CBG ACHs, ADA diet (3) A-fib Current Visit: No Status: Acute Base Code: I48.91 - UNSPECIFIED ATRIAL FIBRILLATION Comment: 10/25/2018 - continue BB, and anticoagulation with Xarelto. (4) DVT prophylaxis Current Visit: No Status: Acute Base Code: [id number] - Comment: 10/25/18: - on therapeutic dose of Xarelto. (5) Full code status Current Visit: No Status: Acute Base Code: Z78.9 - OTHER SPECIFIED HEALTH STATUS Comment: 10/25/18: - Full code. - Disposition The patient is not septic and this infection appears to be localized to the left great toe. She ideally needs systemic antifungal therapy for what appears to dermatophyte infection but in the short term abx to treat acute infection and topical antifungal. - Hospitalization Course Hospital Course: Mrs. Ireland is a 68 y/o diabetic patient who presented to ED after being seen by her primary care doctor with complaint of left great toe swelling, mild pain and some bleeding from under the nail. The patient says that she has some numbness of her feet but has not had any injury to her feet over the past few days. The patient has poorly controlled diabetes and says that she refuses to use insulin. She does not check her serum glucose at home and cannot recall her last A1c. On arrival to the ED the patient's labs were within normal limits. Xray was negative for soft tissue swelling or fracture and Arterial doppler noted borderline ankle brachial index. The patient was started on Unasyn IV and admitted for further observation. Vital signs on admission: BP 160/88 HR 86 RR 20 T 98.8 Sats 97% RA PCP: Dr. Pereyra. Procedures: Imaging and X-Rays 10/24/18 16:20 FOOT, LEFT 3 VIEWS [RAD] Stat 10/24/18 17:24 ARTERIAL DOPPLER LOWER EXT LT [US] Stat Abnormal Labs: Abnormal Lab Results 10/24/18 10/24/18 10/24/18 Range/Units 16:15 16:15 16:15 MPV 12.1 H (7.4-10.4) fl Gran % 42.7 L (47-80) % Lymphocytes % 48.5 H (16-45) % Carbon Dioxide 20.0 L (22-29) mmol/L Anion Gap 17.0 H (7-16) POC Glucose (70-110) mg/dL Random Glucose 298 H (74-109) mg/dL Hemoglobin A1c 12.80 H (4.0-6.00) % 10/24/18 10/25/18 10/25/18 Range/Units 21:43 07:52 12:08 MPV (7.4-10.4) fl Gran % (47-80) % Lymphocytes % (16-45) % Carbon Dioxide (22-29) mmol/L Anion Gap (7-16) POC Glucose 348 H 293 H 255 H (70-110) mg/dL Random Glucose (74-109) mg/dL Hemoglobin A1c (4.0-6.00) % Condition at Discharge: (2) Stable Discharge Medications - Discharge Medications Prescriptions: Cephalexin [Keflex] 500 mg PO Q6HR 7 Days #28 capsule Clotrimazole [Lotrimin AF] 1 gm TP BID #1 tube Home Medications: Ambulatory Orders Cholecalciferol (Vitamin D3) [Vitamin D3] 1,000 unit PO DAILY 01/09/15 [Last Taken 10/24/18] Glipizide [Glipizide ER] 5 mg PO BID 01/09/15 [Last Taken 10/24/18] Lisinopril [Zestril] 10 mg PO DAILY 01/09/15 [Last Taken 10/24/18] Metformin HCl [Glucophage] 1,000 mg PO BID 01/09/15 [Last Taken 10/24/18] Aspirin [Aspirin EC] 81 mg PO DAILY 09/10/15 [Last Taken 10/24/18] Rivaroxaban [Xarelto] 15 mg PO QHS 09/10/15 [Last Taken 10/24/18] Atenolol 50 mg PO DAILY 03/08/17 [Last Taken 10/24/18] Fluconazole [Diflucan] 150 mg PO ASDIR PRN 06/27/18 [Last Taken 10/24/18] Ondansetron [Zofran Odt] 4 mg SL .Q4-6H PRN #12 tab.rapdis 06/27/18 [Last Taken 10/24/18] Cephalexin [Keflex] 500 mg PO Q6HR 7 Days #28 capsule 10/25/18 [Last Taken Unknown] Clotrimazole [Lotrimin AF] 1 gm TP BID #1 tube 10/25/18 [Last Taken Unknown] Ferrous Sulfate 325 mg PO DAILY 10/25/18 [Last Taken Unknown] Rivaroxaban [Xarelto] 15 mg PO QHS tablet 10/25/18 [Last Taken Unknown] Discharge Plan - Discharge Instructions Additional Instructions: On discharge you are to follow up with your PCP: Dr. Pereyra within 1 week. Medications: Use topical Clotrimazole ointment twice daily for the next 2 weeks. Take Keflex 500mg twice daily for the next 7 days. If you notice more redness, swelling or pain please return to the ED for further evaluation. Please call the practice early next week to make an appointment with the [facility] Dr. Gary in 2 weeks. Quality Measures - Quality Measures Quality Measures: Atrial Fibrillation & Atrial Flutter: Chronic Anticoagulation Therapy, Advance Directives, Documentation of Current Medications in Medical Record, Elder Maltreatment Screen and Follow-Up Plan, Screening for High Blood Pressure and F/U Documented - Current Medications Quality Measure: Measure #130: Documentation of Current Medications Documentation of Current Medications: <Current Medications Documented/Reviewed> [[id number]] - Blood Pressure Screening Quality Measure: Screening for High Blood Pressure and Follow-Up Documented Does Patient Have Any of the Following: Active Dx of HTN Blood Pressure Classification: Pre-Hypertensive BP Reading Systolic Measurement: 160 Diastolic Measurement: 88 Screening for High Blood Pressure: Patient Exclusion, Hx of HTN [G9744] - Atrial Fibrillation and Atrial Flutter Quality Measure: Atrial Fibrillation & Atrial Flutter: Chronic Anticoagulation Therapy Does Patient Have Any of the Following: No CHADS2 Risk Stratification: Prior Stroke/TIA or Systemic Embolism, Hypertension , Diabetes Mellitus Risk Stratification Summary: One or more high risk factors OR more than one moderate risk factor exists. [[id number]] Anticoagulation Therapy: <Oral anticoagulant Prescribed> [[id number]] - Advance Directives Quality Measure: Measure #47: Care Plan Advance Directives Established: Yes Advance Directives Information Provided To Patient: Yes Advance Directives on File: No Living Will: No Power of Elementary Instructional Coach: Yes Power of Elementary Instructional Coach Name: DAUGHTER KAYLEIGH DICKINSON IS DPOA Advance Care Planning: <Care Plan/Decision Maker Not Decided; Discussed & Documented> [[id number]] - Elder Abuse Suspicion Index Screening: Elder Abuse Suspicion Index Screening Rely on people for bathing, dressing, shopping, banking, etc: No Prevented from getting food, clothes, medication, etc: No Made to feel shamed or threatened by someone: No Forced to sign papers or use money against will: No Feel afraid, touched in ways not wanted or hurt physically: No Poor eye contact, withdrawn, malnourished, cuts or bruises: No Screening Result: Negative result EASI Reference Information: Shantell HORN, Magali C, Filemon D, [place].Development and validation of a tool to assist physicians identification of elder abuse: The Elder Abuse Suspicion Index (EASI ). Journal of Elder Abuse and Neglect, 2008; 20 (3): 276-300. - Elder Maltreatment Screen Quality Measures: Elder Maltreatment Screen and Follow-Up Plan Elder Maltreatment Screen: <Negative, No Follow-Up Plan Required> [[id number]]
== END 2018-10-25 14:25 | disposition home or self-care (01) ==
LOC: ER 16:05 → MEDSURG 18:10 → INTOOBSV 18:10
PROVIDERS: ADMIT Internal Medicine; ATTEND Internal Medicine
DX: L03.032 Cellulitis of left toe (principal); E11.65 Type 2 diabetes mellitus with hyperglycemia; I48.91 Unspecified atrial fibrillation; Z78.9 Other specified health status; I10 Essential (primary) hypertension; Z79.01 Long term (current) use of anticoagulants; Z79.84 Long term (current) use of oral hypoglycemic drugs; Z87.891 Personal history of nicotine dependence; E11.51 Type 2 diabetes mellitus with diabetic peripheral angiopathy without gangrene; J44.9 Chronic obstructive pulmonary disease, unspecified
CPT/HCPCS: 99285 ×2; 96365; 96366; 85025; 86140; 80048; 36416 ×2; 83036; 82948 ×2; 73630; 93925; G0378 ×2; J0295; J3490; 99220

== ENCOUNTER 2019-05-07 20:41 | Emergency (ER) | payer MEDICARE, OTHER ==
[2019-05-07 21:09] LABS: URINE APPEARANCE CLEAR; URINE BILIRUBIN SMALL (NEGATIVE); URINE BLOOD NEGATIVE (NEGATIVE); URINE COLOR YELLOW; URINE KETONE NEGATIVE (NEGATIVE); URINE LEUKOCYTE ESTERASE MODERATE (NEGATIVE); URINE NITRITE NEGATIVE (NEGATIVE); URINE PROTEIN TRACE (NEGATIVE); URINE UROBILINOGEN 0.2 E.U./dL (0.20 - 1.00)
[2019-05-07 21:16] LABS: URINE BACTERIA 3+; URINE RBC 0 - 2 (NONE SEEN); URINE WBC >50 (0-2/hpf)
[2019-05-07] MEDS ORDERED: 0.9 % SODIUM CHLORIDE 1,000 ML BAG IV ONE (21:21)
[2019-05-07] MEDS ORDERED: CEFTRIAXONE 1GM/50ML BAG 1 GM/50 ML BAG IVPB ONE (21:27)
--- NOTE | 2019-05-07 21:27 | Emergency Department Record ---
History of Present Illness - General Chief complaint: Weakness Stated complaint: WEAKNESS Time Seen by Provider: 05/07/19 21:04 Source: Patient Mode of Arrival: Ambulatory Limitations: No limitations - History of Present Illness Initial comments: The patient is here due to not feeling well today. She has had a low grade fever and possibly slightly confused per family. She has had similar issues with UTI's in the past. The patient denies any pain, nausea, vomiting, dysuria, or back pain. MD Complaint: Generalized weakness Onset/Timin -: Days(s) Location: Generalized Context: History of similar Associated Symptoms: Fever/chills - Kartik Coma Scale Eye Response: (4) Open spontaneously Motor Response: (6) Obeys commands Verbal Response: (5) Oriented Kartik Total: 15 - Related Data Previous Rx's Medication Instructions Recorded Cephalexin [Keflex] 500 mg PO TID #29 cap 05/07/19 Allergies Allergy/AdvReac Type Severity Reaction Status Date / Time No Known Drug Allergies Allergy Verified 05/07/19 20:54 Travel Screening - Travel/Exposure Within Last 30 Days Have you traveled within the last 30 days?: No - Travel/Exposure Within Last Year Have you traveled outside the [place] in the last year?: No - Additonal Travel Details Have you been exposed to anyone with a communicable illness?: No - Travel Symptoms Symptom Screening: None Review of Systems Constitutional: Reports: Malaise. Denies: Chills, Fever Eyes: Denies: Eye discharge ENT: Denies: Congestion Respiratory: Denies: Dyspnea Cardiovascular: Denies: Chest pain Endocrine: Reports: Fatigue Gastrointestinal: Denies: Nausea Genitourinary: Denies: Dysuria Musculoskeletal: Denies: Arthralgia Skin: Denies: Bruising Past Medical History - SOCIAL HISTORY Smoking Status: Former smoker Alcohol Use: None Drug Use: None - RESPIRATORY Hx Respiratory Disorders: Yes Hx Asthma: Yes Hx COPD: Yes ((start of emphysema)) Hx Pulmonary Embolism: Yes (01/2015) - CARDIOVASCULAR Hx Cardio Disorders: Yes Hx Abnormal EKG: Yes Hx Heart Attack: Yes (few years ago) Hx Hypertension: Yes Hx Irregular Heartbeat: Yes (a-fib) - NEURO Hx Neuro Disorders: No Hx CVA: No Hx of Migraines: No - GI Hx GI Disorders: No Hx GI Bleed: No - Hx Genitourinary Disorders: Yes Hx UTI: Yes (with sepsis) - ENDOCRINE Hx Endocrine Disorders: Yes Hx Diabetes: Yes Hx Thyroid Disease: No - MUSCULOSKELETAL Hx Musculoskeletal Disorders: Yes Hx Arthritis: Yes (especially left hip is "bone on bone") - PSYCH Hx Psych Problems: No - HEMATOLOGY/ONCOLOGY Hx Hematology/Oncology Disorders: Yes Hx Anemia: Yes Hx Blood Transfusions: Yes (may) Family Medical History Any Significant Family History?: No Hx Cancer: Mother *Cancer Comment: gastric Hx Diabetes: Mother Hx Stroke: Mother Physical Exam - General General Appearance: Alert, Oriented x3, Cooperative, No acute distress - Head Head exam: Atraumatic, Normocephalic, Normal inspection - Eye Eye exam: Normal appearance, PERRL - ENT Throat exam: Normal inspection. negative: Tonsillar erythema, Tonsillar exudate - Neck Neck exam: Normal inspection, Full ROM. negative: Tenderness - Respiratory Respiratory exam: Normal lung sounds bilaterally. negative: Respiratory distress - Cardiovascular Cardiovascular Exam: Regular rate, Normal rhythm, Normal heart sounds - GI/Abdominal GI/Abdominal exam: Soft, Normal bowel sounds. negative: Tenderness - Extremities Extremities exam: Normal inspection, Full ROM, Normal capillary refill. negative: Tenderness - Back Back exam: Reports: Normal inspection. Denies: CVA tenderness (R), CVA tenderness (L) - Neurological Neurological exam: Alert, Normal gait, Oriented X3. negative: Abnormal gait, Altered, Motor sensory deficit - Psychiatric Psychiatric exam: negative: Anxious Course Vital Signs 05/07/19 20:42 Temperature 98.3 F Pulse Rate [ 98 H Pulse Ox Probe] Respiratory 24 Rate Blood Pressure 117/68 [Left Arm] Pulse Ox 92 L - Reevaluation(s) Reevaluation #1: The patient is doing very well at this time. She is alert and oriented x 3 and answering all questions appropriately. She clearly has a UTI but has had no fever here and no WBC elevation. We have treated her with IV Rocephin and she would like to go home. I see no reason to keep her in the hospital due to the fact she is doing so well and she does live with her son. We will talk with family when they arrive. 05/07/19 22:23 Reevaluation #2: The patient is doing very well at this time. She is ambulating normally with no confusion or weakness. She will be discharged with her son who lives with her. The patient feels very comfortable going home. 05/07/19 22:40 Medical Decision Making - Data Complexity MDM Data: Labs Ordered and/or Reviewed - Lab Data Result diagrams: 05/07/19 20:55 05/07/19 20:55 Lab Results 05/07/19 Range/Units 20:48 Urine Color Yellow Urine Appearance Clear Urine pH 5.0 (5.0-8.0) Ur Specific [place] 1.020 (1.002-1.030) Urine Protein Trace H (NEGATIVE) Urine Glucose (UA) 100 mg/dl H (NEGATIVE) Urine Ketones Negative (NEGATIVE) Urine Blood Negative (NEGATIVE) Urine Nitrite Negative (NEGATIVE) Urine Bilirubin Small H (NEGATIVE) Urine Urobilinogen 0.2 (0.20 - 1.00) E.U./dL Ur Leukocyte Esterase Moderate H (NEGATIVE) Urine RBC 0 - 2 (NONE SEEN) Urine WBC >50 (0-2/hpf) U Non-Squamous Epi Cells 3 - 6 /hpf Urine Bacteria 3+ Disposition Disposition: Discharge Clinical Impression: UTI (urinary tract infection) Qualifiers: Urinary tract infection type: acute cystitis Hematuria presence: without hematuria Qualified Code(s): N30.00 - Acute cystitis without hematuria Disposition: Home, Self-Care Condition: (2) Stable Instructions: Urinary Tract Infection in Women (ED) Additional Instructions: Please continue the Keflex tomorrow as directed and please use Tylenol or Motrin for any fever. Please see your doctor on Sunday for recheck and return to the ER for any fever, weakness, confusion, or vomiting. Prescriptions: Cephalexin [Keflex] 500 mg PO TID #29 cap Forms: Patient Portal Access Time of Disposition: 22:43 Quality - Quality Measures Quality Measures: N/A - Blood Pressure Screening View Details: Yes Does Patient Have Any of the Following: No Blood Pressure Classification: Pre-Hypertensive BP Reading Systolic Measurement: 122 Diastolic Measurement: 64 Screening for High Blood Pressure: < Pre-Hypertensive BP, F/U Documented > [G8950] Pre-Hypertensive Follow-up Interventions: Referral to alternative/primary care provider.
[2019-05-07 21:33] LABS: ABSOLUTE NEUTROPHIL COUNT 6.19; BASO % 0.2 % (0-6); GRAN % 70.5 % (47-80); HEMATOCRIT 35.4 % (35.0-47.0); HEMOGLOBIN 11.7 gm/dl (11.6-16.0); LYMPH % 25.1 % (16-45); MEAN CORPUSCULAR HEMOGLOBIN 30.1 pg (27-33); MEAN CORPUSCULAR HGB CONC 33.1 g/dl (32-36); MEAN PLATELET VOLUME 11.7 fl (7.4-10.4); MONO % 4.2 % (0-9); PLATELET COUNT 294 K/uL (130-400); RED BLOOD COUNT 3.89 M/uL (3.80-5.40); RED CELL DISTRIBUTION WIDTH 13.3 % (11.5-14.5); WHITE BLOOD COUNT W/O DIFF 8.8 K/uL (4.2-12.2)
[2019-05-07] MEDS ORDERED: ACETAMINOPHEN 325 MG TAB PO ONE (21:41)
[2019-05-07 22:03] LABS: BLOOD UREA NITROGEN 13 mg/dL (8-23); CREATININE 0.9 mg/dL (0.5-0.9); EST GLOMERULAR FILTRATION RATE > 60 mL/min
[2019-05-07 22:06] LABS: GLUCOSE,RANDOM 166 mg/dL (74-109)
[2019-05-07 22:09] LABS: C-REACTIVE PROTEIN 6.24 mg/dL (<0.5)
[2019-05-07] MEDS ORDERED: CEPHALEXIN 500 MG CAPSULE PO STA (22:39)
== END 2019-05-07 22:45 | disposition home or self-care (01) ==
LOC: ER 20:41
DX: N30.00 Acute cystitis without hematuria (principal); R53.1 Weakness; E11.9 Type 2 diabetes mellitus without complications; J44.9 Chronic obstructive pulmonary disease, unspecified; I10 Essential (primary) hypertension; I25.2 Old myocardial infarction; Z87.891 Personal history of nicotine dependence
CPT/HCPCS: 99284 ×2; 96374; 85025; 86140; 80048; 81001; 84145; J0696; J7030

== ENCOUNTER 2019-06-05 08:48 | Day surgery (SDC) | payer MEDICARE, OTHER ==
[2019-06-05] MEDS ORDERED: PROPOFOL 10 MG/ML VIAL IV ONE (08:49)
[2019-06-05] MEDS ORDERED: LIDOCAINE 2% MDV (20MG/ML) 20ML VIAL IV ONE (08:49)
[2019-06-05] MEDS ORDERED: 0.9 % SODIUM CHLORIDE 1000ML 500 ML IV ONE (09:43)
[2019-06-05] MEDS ORDERED: LIDOCAINE 2% MDV (20MG/ML) 20ML VIAL SQ ONE (10:40)
[2019-06-05] MEDS ORDERED: TETRACAINE HCL 0.5% 15 ML OPTH BTL OPTH ONE (10:48)
[2019-06-05] MEDS ORDERED: NEOM/BACI/POLY/HC 3.5 GM OPTH OINT OPTH ONE (10:59)
[2019-06-05] MEDS ORDERED: EPINEPHRINE 1 MG/ML AMPUL IO ONE (11:02)
[2019-06-05] MEDS ORDERED: CIPROFLOXACIN HCL 0.0015 GM, PHENYLEPHRINE HCL 0.05 GM, KETOROLAC TROMETHAMINE 0.000625 GM MC ONE ×5 (16:30)
--- NOTE | 2019-06-05 21:20 | Operative Note ---
DATE OF PROCEDURE: 06/05/19. PREOPERATIVE DIAGNOSIS: Nuclear sclerotic and cortical cataract, right eye. POSTOPERATIVE DIAGNOSIS: Nuclear sclerotic and cortical cataract, right eye. OPERATION: Phacoemulsification of cataractous lens with implantation of intraocular lens. LENS IMPLANT USED: [employer] Model PCB00 + 19.5 diopters. COMPLICATIONS: None. PROCEDURE IN DETAIL: Following a retrobulbar and facial block, the patient was prepped and draped in the usual fashion for eye surgery. A lid speculum was placed in the right eye after which a 2.4 mm tunnel wound was placed at the temporal limbus and dissected into clear cornea. A paracentesis was placed at 2 o'clock hours to the left and right of the initial incision and the chamber deepened with Viscoelastic. The keratome was then used to enter the anterior chamber after which the continuous circular capsulorrhexis was accomplished without difficulty using a bent needle and a Utrata forceps. Hydrodissection and hydrodelineation of the lens was performed after which the nucleus of the lens was removed using the Phaco handpiece in the [id number] technique. The residual cortical material was irrigated and aspirated from the eye after which the bag and chamber were re-examined. The bag was re-inflated with Viscoelastic and the intraocular lens injected into the capsular bag where it centered well. The Viscoelastic was then copiously irrigated and aspirated from the eye after which the temporal tunnel wound and paracentesis were hydrated and the wounds were examined. They were noted to be watertight. The lid speculum was removed from the eye and the eye patched and shielded. The patient was transferred to the recovery room in satisfactory condition and given an appointment to be reexamined in the clinic later today or as directed by Dr. Munoz. JOB NUMBER: [id number] [facility]
== END 2019-06-05 11:40 | disposition home or self-care (01) ==
LOC: SUR 08:48
PROVIDERS: ATTEND Ophthalmology
DX: H25.11 Age-related nuclear cataract, right eye (principal); I48.91 Unspecified atrial fibrillation; Z79.01 Long term (current) use of anticoagulants; E11.9 Type 2 diabetes mellitus without complications; I10 Essential (primary) hypertension; J44.9 Chronic obstructive pulmonary disease, unspecified; I25.2 Old myocardial infarction; Z86.711 Personal history of pulmonary embolism
CPT/HCPCS: 36416; 82948; J0171; J7030

== ENCOUNTER 2019-06-26 08:09 | Emergency (ER) | payer MEDICARE, OTHER ==
--- NOTE | 2019-06-26 08:48 | Emergency Department Record ---
History of Present Illness - General Chief Complaint: Fall Injury Stated Complaint: FALL Time Seen by Provider: 06/26/19 08:20 Source: Patient Mode of Arrival: Ambulatory Limitations: No limitations - History of Present Illness Initial Comments: pt fell in the night, hitting her head, hip and ankle. no wan MD Complaint: Fall -: Unknown Fall From: Standing When Fall Occurred: Unsure Fall Witnessed: No Place Fall Occurred: Home Loss of Consciousness: None Prolonged Down Time?: No Symptoms Prior to Fall: Other Location: Head Location - Extremities: Right: Thigh, Ankle Severity: Moderate Severity scale (1-10): 6 Quality: Sharp Context: Other Associated Symptoms: Weakness - Kartik Coma Scale Eye Response: (4) Open spontaneously Motor Response: (6) Obeys commands Verbal Response: (5) Oriented [place] Total: 15 - Related Data Allergies Allergy/AdvReac Type Severity Reaction Status Date / Time No Known Drug Allergies Allergy Verified 06/26/19 08:30 Travel Screening - Travel/Exposure Within Last 30 Days Have you traveled within the last 30 days?: No - Travel/Exposure Within Last Year Have you traveled outside the [place] in the last year?: No - Additonal Travel Details Have you been exposed to anyone with a communicable illness?: No - Travel Symptoms Symptom Screening: None Review of Systems Reviewed: No additional complaints except as noted below Constitutional: Reports: As per HPI. Denies: Chills, Fever, Malaise, Night sweats, Weakness, Weight change Eyes: Reports: As per HPI. Denies: Eye discharge, Eye pain, Photophobia, Vision change ENT: Reports: As per HPI. Denies: Congestion, Dental pain, Ear pain, Epistaxis, Hearing loss, Throat pain Respiratory: Reports: As per HPI. Denies: Cough, Dyspnea, Hemoptysis, Stridor, Wheezes Cardiovascular: Reports: As per HPI. Denies: Arrhythmia, Chest pain, Dyspnea on exertion, Edema, Murmurs, Orthopnea, Palpitations, Paroxysmal nocturnal dyspnea, Rheumatic Fever, Syncope Endocrine: Reports: As per HPI. Denies: Fatigue, Heat or cold intolerance, Poly dipsia, Polyuria Gastrointestinal: Reports: As per HPI. Denies: Abdominal pain, Constipation, Diarrhea, Hematemesis, Hematochezia, Melena, Nausea, Vomiting Genitourinary: Reports: As per HPI. Denies: Abnormal menses, Discharge, Dyspareunia, Dysuria, Frequency, Hematuria, Incontinence, Retention, Urgency Musculoskeletal: Reports: As per HPI. Denies: Arthralgia, Back pain, Gout, Joint swelling, Myalgia, Neck pain Skin: Reports: As per HPI. Denies: Bruising, Change in color, Change in hair/nails, Lesions, Pruritus, Rash Neurological: Reports: As per HPI. Denies: Abnormal gait, Confusion, Headache, Numbness, Paresthesias, Seizure, Tingling, Tremors, Vertigo, Weakness Psychiatric: Reports: As per HPI. Denies: Anxiety, Auditory hallucinations, Depression, Homicidal thoughts, Suicidal thoughts, Visual hallucinations Hematological/Lymphatic: Reports: As per HPI. Denies: Anemia, Blood Clots, Easy bleeding, Easy bruising, Swollen glands Past Medical History - SOCIAL HISTORY Smoking Status: Former smoker Alcohol Use: Rare Drug Use: None - RESPIRATORY Hx Respiratory Disorders: Yes Hx Asthma: Yes Hx COPD: Yes ((start of emphysema)) Hx Pulmonary Embolism: Yes (01/2015) - CARDIOVASCULAR Hx Cardio Disorders: Yes Hx Abnormal EKG: Yes Hx Heart Attack: Yes (A FEW YEARS AGO) Hx Hypertension: Yes (ON MEDS WITH GOOD CONTROL) Hx Irregular Heartbeat: Yes (A FIB) - NEURO Hx Neuro Disorders: No Hx CVA: No Hx of Migraines: No - GI Hx GI Disorders: No Hx GI Bleed: No - Hx Genitourinary Disorders: Yes Hx UTI: Yes (FREQUENT) - ENDOCRINE Hx Endocrine Disorders: Yes Hx Diabetes: Yes (DX'D A FEW YEARS AGO) Comment:: PT DOESNT CHECK BLOOD SUGARS - MUSCULOSKELETAL Hx Musculoskeletal Disorders: Yes Hx Arthritis: Yes (especially left hip is "bone on bone") - PSYCH Hx Psych Problems: No - HEMATOLOGY/ONCOLOGY Hx Hematology/Oncology Disorders: Yes Hx Anemia: Yes Hx Blood Transfusions: Yes (HX OF) Hx Blood Transfusion Reaction: No Family Medical History Any Significant Family History?: Yes Hx Cancer: Mother *Cancer Comment: gastric Hx Diabetes: Mother Hx Stroke: Mother Physical Exam - General General Appearance: Alert, Oriented x3, Cooperative, Mild distress - Head Head exam: Normal inspection Head exam detail: Contusion, Hematoma - Eye Eye exam: Normal appearance, PERRL, EOMI Pupils: Normal accommodation - ENT ENT exam: Normal exam, Mucous membranes moist, Normal external ear exam, Normal orophraynx, TM's normal bilaterally Ear exam: Normal external inspection. negative: External canal tenderness Nasal Exam: Normal inspection. negative: Discharge, Sinus tenderness Mouth exam: Normal external inspection, Tongue normal Teeth exam: Normal inspection. negative: Dental caries Throat exam: Normal inspection. negative: Tonsillar erythema, Tonsillar exudate - Neck Neck exam: Normal inspection, Full ROM. negative: Tenderness - Respiratory Respiratory exam: Normal lung sounds bilaterally. negative: Respiratory distress - Cardiovascular Cardiovascular Exam: Regular rate, Normal rhythm, Normal heart sounds - GI/Abdominal GI/Abdominal exam: Soft, Normal bowel sounds. negative: Tenderness - Rectal Rectal exam: Deferred - exam: Deferred - Extremities Extremities exam: Full ROM, Normal capillary refill, Tenderness Image of Full Body: 1 - tender 2 - tender 3 - tender - Back Back exam: Reports: Normal inspection, Full ROM. Denies: Muscle spasm, Rash noted, Tenderness - Neurological Neurological exam: Alert, CN II-XII intact, Normal gait, Oriented X3, Reflexes normal - Psychiatric Psychiatric exam: Normal affect, Normal mood - Skin Skin exam: Dry, Intact, Normal color, Warm Course Vital Signs 06/26/19 08:15 Temperature 99.4 F Pulse Rate [ 102 H Pulse Ox Probe] Respiratory 18 Rate Blood Pressure 134/81 [Left Arm] Pulse Ox 95 Disposition Disposition: Discharge Clinical Impression: Fibula fracture Qualifiers: Encounter type: initial encounter Fibula location: distal Fracture type: closed Fracture morphology: unspecified fracture morphology Laterality: right Qualified Code(s): S82.831A - Other fracture of upper and lower end of right fibula, initial encounter for closed fracture Disposition: Home, Self-Care Condition: (1) Good Instructions: Fall Prevention for Older Adults (ED), Ankle Fracture (ED) Additional Instructions: FOLLOW UP WITH FAMILY DOCTOR AND WITH DR YANES. RETURN SOONER IF WORSE. ICE AND ELEVATE. MOTRIN WITH FOOD Referrals: John Yanes [DOCTOR OF OSTEOPATH] - [facility] [Provider Group] Forms: Patient Portal Access Quality - Quality Measures Quality Measures: N/A - Blood Pressure Screening Does Patient Have Any of the Following: No Blood Pressure Classification: Pre-Hypertensive BP Reading Systolic Measurement: 134 Diastolic Measurement: 81 Screening for High Blood Pressure: < Pre-Hypertensive BP, F/U Documented > [G8950] Pre-Hypertensive Follow-up Interventions: Follow-up with rescreen every year.
--- NOTE | 2019-06-27 06:51 | CT SCAN REPORT ---
EXAM: CT SCAN HEAD WO CONTRAST HISTORY: FALL LAST NIGHT. RIGHT POSTERIOR HEAD TRAUMA. TECHNIQUE: Routine noncontrast CT of the brain. COMPARISON: None. FINDINGS: Mild prominence of the subarachnoid spaces consistent with borderline to mild atrophy. The ventricles are not enlarged. Moderate periventricular and subcortical white matter lucencies are scattered in each cerebral hemisphere. These are nonspecific but likely areas of chronic microvascular ischemia. No evidence of major vessel infarct. There is a chronic benign-appearing calcification within the anterior midline mid to upper jona. No abnormal extra-axial fluid collection is seen. No acute skull fracture. The visualized paranasal sinuses are clear. There is a paucity of mastoid air cells. There is partial opacification of the superior aspect of the middle ear cavity. Post cataract surgery changes are noted bilaterally. IMPRESSION: 1. NO CT EVIDENCE OF ACUTE MAJOR VESSEL INFARCT, INTRACRANIAL HEMORRHAGE, MASS, NOR SKULL FRACTURE. 2. MILD ATROPHY. MODERATE WHITE MATTER LUCENCIES SCATTERED IN EACH CEREBRAL HEMISPHERE ARE NONSPECIFIC BUT LIKELY AREAS OF CHRONIC MICROVASCULAR ISCHEMIA. 3. PARTIAL OPACIFICATION OF THE SUPERIOR ASPECT OF THE LEFT MIDDLE EAR CAVITY. JOB NUMBER: [id number] [facility]
--- NOTE | 2019-06-27 08:03 | RADIOLOGY REPORT ---
EXAM: RIGHT ANKLE, THREE VIEWS HISTORY: LATERAL RIGHT ANKLE PAIN POST FALL. TECHNIQUE: Three views of the right ankle were obtained. Comparison: None. Encounter: Initial. FINDINGS: There is mild diffuse osteopenia. There is an oblique fracture of the distal fibula with its distal extent near the level of the talar dome. There is minimal posterolateral displacement of the distal fracture fragment by approximately 1 mm. There is associated soft tissue swelling. No other definite fracture is seen. The ankle mortise joint is symmetric. There are mild degenerative changes of the hindfoot. A small to moderate size plantar calcaneal spur is present. IMPRESSION: OBLIQUE FRACTURE OF THE DISTAL FIBULA WITH THE DISTAL EXTENT NEAR THE LEVEL OF THE LATERAL CORNER OF THE ANKLE MORTISE. MINIMAL DISPLACEMENT. SYMMETRIC ANKLE MORTISE. SOFT TISSUE SWELLING. JOB NUMBER: [id number] [facility]
--- NOTE | 2019-06-27 08:07 | RADIOLOGY REPORT ---
EXAM: PELVIS AND RIGHT HIP HISTORY: LATERAL RIGHT HIP PAIN POST FALL. TECHNIQUE: An AP view of the pelvis was obtained as well as AP and frog leg lateral views of the right hip. Comparison: Left hip dated 03/05/18. Encounter: Initial. FINDINGS: There is mild diffuse osteopenia. No convincing acute fracture, dislocation, or destructive bone lesion is seen. There are mild degenerative changes of each hip and each sacroiliac joint. There are degenerative changes of the lower lumbar spine, most pronounced at the lumbosacral junction where they are at least moderate. Vascular calcifications are again noted scattered within the lower pelvis. IMPRESSION: 1. OSTEOPENIA MILDLY LIMITED EVALUATION. 2. NO ACUTE FRACTURE NOR DISLOCATION IDENTIFIED. JOB NUMBER: [id number] [facility]
== END 2019-06-26 10:53 | disposition home or self-care (01) ==
LOC: ER 08:09
DX: S82.431A Displaced oblique fracture of shaft of right fibula, initial encounter for closed fracture (principal); S09.90XA Unspecified injury of head, initial encounter; M25.551 Pain in right hip; R53.1 Weakness; W19.XXXA Unspecified fall, initial encounter; Y92.009 Unspecified place in unspecified non-institutional (private) residence as the place of occurrence of the external cause; I10 Essential (primary) hypertension; I25.2 Old myocardial infarction; E11.9 Type 2 diabetes mellitus without complications; I48.91 Unspecified atrial fibrillation; Z79.84 Long term (current) use of oral hypoglycemic drugs; Z87.891 Personal history of nicotine dependence; Z79.01 Long term (current) use of anticoagulants
CPT/HCPCS: 36416; 70450; 82948

== ENCOUNTER 2019-06-26 19:25 | Observation (INO) | payer MEDICARE, OTHER ==
[2019-06-26] MEDS ORDERED: ACETAMINOPHEN 1,000 MG/100 ML BTL IVPB ONE (19:37)
--- NOTE | 2019-06-26 19:44 | Emergency Department Record ---
History of Present Illness - General Chief Complaint: Fall Injury Stated Complaint: KEEPS FALLING Time Seen by Provider: 06/26/19 19:27 Source: Patient Mode of Arrival: Ambulatory Limitations: No limitations - History of Present Illness Initial Comments: 68 yo female presents after recurrent falls in the last 24 hours. She reports she is weak. Her first fall was yesterday and then again in the morning. She was seen in the ED. She was diagnosed with a fibular fracture. She is on Xarelto. She had a negative head CT for trauma. She non-traumatically fell just prior to arrival and could not get up due to weakness. She did not his her head since the fall. She now returns with a 102.7 fever. No cough. No chest pain. She denies any new injury. No dysuria. Complaint: Fall -: Days(s) (1) Fall From: Standing When Fall Occurred: Just prior to arrival Fall Witnessed: Yes, by family Place Fall Occurred: Home Loss of Consciousness: None Prolonged Down Time?: Yes Symptoms Prior to Fall: Other (weak all over) Location: Other (no new injury) Severity: Mild Quality: Other (generalized weak) Associated Symptoms: Weakness - [place] Coma Scale Eye Response: (4) Open spontaneously Motor Response: (6) Obeys commands Verbal Response: (5) Oriented Kartik Total: 15 - Related Data Allergies Allergy/AdvReac Type Severity Reaction Status Date / Time No Known Drug Allergies Allergy Verified 06/26/19 19:35 Review of Systems Constitutional: Reports: Malaise, Weakness. Denies: Chills, Fever Eyes: Denies: Eye discharge, Eye pain, Photophobia, Vision change ENT: Denies: Congestion, Throat pain Respiratory: Denies: Cough, Dyspnea, Hemoptysis, Stridor, Wheezes Cardiovascular: Denies: Chest pain, Dyspnea on exertion, Palpitations, Syncope Endocrine: Reports: Fatigue. Denies: Polydipsia, Polyuria Gastrointestinal: Denies: Abdominal pain, Diarrhea, Nausea, Vomiting Genitourinary: Denies: Dysuria, Urgency Musculoskeletal: Reports: As per HPI, Arthralgia. Denies: Back pain Skin: Denies: Bruising, Rash Neurological: Reports: Weakness. Denies: Headache, Numbness Psychiatric: Denies: Anxiety Hematological/Lymphatic: Denies: Easy bleeding, Easy bruising Past Medical History - SOCIAL HISTORY Smoking Status: Former smoker Drug Use: None - RESPIRATORY Hx Respiratory Disorders: Yes Hx Asthma: Yes Hx COPD: Yes ((start of emphysema)) Hx Pulmonary Embolism: Yes (01/2015) - CARDIOVASCULAR Hx Cardio Disorders: Yes Hx Abnormal EKG: Yes Hx Heart Attack: Yes (A FEW YEARS AGO) Hx Hypertension: Yes (ON MEDS WITH GOOD CONTROL) Hx Irregular Heartbeat: Yes (A FIB) - NEURO Hx Neuro Disorders: No Hx CVA: No Hx of Migraines: No - GI Hx GI Disorders: No Hx GI Bleed: No - Hx Genitourinary Disorders: Yes Hx UTI: Yes (FREQUENT) - ENDOCRINE Hx Endocrine Disorders: Yes Hx Diabetes: Yes (DX'D A FEW YEARS AGO) Comment:: PT DOESNT CHECK BLOOD SUGARS - MUSCULOSKELETAL Hx Musculoskeletal Disorders: Yes Hx Arthritis: Yes (especially left hip is "bone on bone") - PSYCH Hx Psych Problems: No - HEMATOLOGY/ONCOLOGY Hx Hematology/Oncology Disorders: Yes Hx Anemia: Yes Hx Blood Transfusions: Yes (HX OF) Hx Blood Transfusion Reaction: No Family Medical History Hx Cancer: Mother *Cancer Comment: gastric Hx Diabetes: Mother Hx Stroke: Mother Physical Exam - General General Appearance: Alert, Oriented x3, Cooperative, No acute distress Limitations: No limitations - Head Head exam: Atraumatic, Normocephalic, Normal inspection - Eye Eye exam: Normal appearance, PERRL. negative: Conjunctival injection, Scleral icterus - ENT ENT exam: Normal exam, Mucous membranes moist, Normal orophraynx Ear exam: Normal external inspection Nasal Exam: Normal inspection Mouth exam: Normal external inspection Teeth exam: Normal inspection Throat exam: Normal inspection - Neck Neck exam: Normal inspection. negative: Lymphadenopathy, Tenderness - Respiratory Respiratory exam: Normal lung sounds bilaterally. negative: Decreased breath sounds, Prolonged expiratory, Respiratory distress, Rhonchi, Stridor, Wheezes - Cardiovascular Cardiovascular Exam: Regular rate, Normal rhythm, Normal heart sounds Peripheral Pulses: 2+: Radial (R), Radial (L) - GI/Abdominal GI/Abdominal exam: Soft. negative: Tenderness - Rectal Rectal exam: Deferred - exam: Deferred - Extremities Extremities exam: Normal inspection. negative: Pedal edema, Tenderness - Back Back exam: Denies: CVA tenderness (R), CVA tenderness (L) - Neurological Neurological exam: Alert, Oriented X3. negative: Motor sensory deficit - Psychiatric Psychiatric exam: Normal affect, Normal mood. negative: Agitated, Anxious - Skin Skin exam: Dry, Intact, Normal color, Warm Course - Reevaluation(s) Reevaluation #1: 06/26/19 22:07 The UA is consistent with UTI Given her fever and UTI with weakness and falls I recommend admission The patient was admitted on IV Rocephin with blood and urine cultures sent Medical Decision Making - Lab Data Result diagrams: 06/26/19 19:58 06/26/19 19:58 Disposition Disposition: Admit Clinical Impression: Urinary tract infection, Falls, Fibula fracture Disposition: Still a Patient at [facility] Decision to Admit: Admit from ER Decision to Admit Date: 06/26/19 Decision to Admit Time: 20:20 Condition: (2) Stable Forms: Patient Portal Access Time of Disposition: 20:20 Quality - Quality Measures Quality Measures: N/A - Blood Pressure Screening Does Patient Have Any of the Following: No, Active Dx of HTN Blood Pressure Classification: Pre-Hypertensive BP Reading Systolic Measurement: 120 Diastolic Measurement: 67 Screening for High Blood Pressure: Patient Exclusion, Hx of HTN [G9744]
[2019-06-26 20:01] LABS: URINE APPEARANCE CLEAR; URINE BILIRUBIN NEGATIVE (NEGATIVE); URINE BLOOD LARGE (NEGATIVE); URINE COLOR YELLOW; URINE KETONE TRACE (NEGATIVE); URINE LEUKOCYTE ESTERASE MODERATE (NEGATIVE); URINE NITRITE POSITIVE (NEGATIVE)
[2019-06-26] MEDS: 0.9 % SODIUM CHLORIDE 1000ML 1,000 ML IV ONE ×2 (20:01→22:43)
[2019-06-26 20:05] LABS: URINE BACTERIA 3+
[2019-06-26 20:16] LABS: ABSOLUTE NEUTROPHIL COUNT 7.15; BASO % 0.2 % (0-6); GRAN % 75.2 % (47-80); HEMATOCRIT 36.5 % (35.0-47.0); HEMOGLOBIN 12.4 gm/dl (11.6-16.0); LYMPH % 17.2 % (16-45); MEAN CELL VOLUME 88.8 fl (81-97); MEAN CORPUSCULAR HEMOGLOBIN 30.2 pg (27-33); MEAN PLATELET VOLUME 11.9 fl (7.4-10.4); MONO % 7.4 % (0-9); PLATELET COUNT 224 K/uL (130-400); RED BLOOD COUNT 4.11 M/uL (3.80-5.40); RED CELL DISTRIBUTION WIDTH 13.9 % (11.5-14.5); WHITE BLOOD COUNT W/O DIFF 9.5 K/uL (4.2-12.2)
[2019-06-26] MEDS ORDERED: CEFTRIAXONE 1GM/50ML BAG 1 GM/50 ML BAG IVPB ONE (20:19)
[2019-06-26 20:28] LABS: BILIRUBIN,TOTAL 0.5 mg/dL (0.2-1.0); TOTAL PROTEIN 7.6 g/dL (6.6-8.7)
[2019-06-26 20:33] LABS: ALB/GLOB RATIO 1.2 (1.1-1.8); ALBUMIN 4.1 g/dL (4.0-5.0)
[2019-06-26] MEDS ORDERED: RIVAROXABAN 20 MG TABLET PO SCH (22:32)
[2019-06-26] MEDS ORDERED: 0.9 % SODIUM CHLORIDE 1000ML 1,000 ML IV PRN (22:32)
[2019-06-26] MEDS: METFORMIN 500 MG TABLET PO SCH (22:55)
[2019-06-26] MEDS: GLIPIZIDE XL 5 MG TABLET PO SCH (22:56)
[2019-06-26] MEDS: ACETAMINOPHEN 325 MG TAB PO PRN (23:33)
[2019-06-27] MEDS: METFORMIN 500 MG TABLET PO SCH (09:27)
[2019-06-27] MEDS: GLIPIZIDE XL 5 MG TABLET PO SCH (09:27)
[2019-06-27] MEDS ORDERED: ASPIRIN 81 MG TABEC PO SCH (10:00)
[2019-06-27] MEDS ORDERED: LISINOPRIL 10 MG TABLET PO SCH (10:00)
[2019-06-27] MEDS ORDERED: ATENOLOL 50 MG TABLET PO SCH (10:00)
[2019-06-27] MEDS ORDERED: CEFTRIAXONE 1GM/50ML BAG IVPB SCH (11:00)
[2019-06-27] MEDS ORDERED: CEFTRIAXONE 1GM/50ML BAG 1 GM/50 ML BAG IVPB ONE (11:00)
[2019-06-27] MEDS ORDERED: CIPROFLOXACIN HCL 500 MG TABLET PO SCH (11:00)
--- NOTE | 2019-06-27 11:19 | Discharge Note ---
VTE H&P Assessment - Risk for VTE Risk for VTE: Yes Risk Level: Moderate Risk Assessment Date: 06/27/19 Risk Assessment Time: 11:18 VTE Orders Placed or Will Be Placed: No VTE Reason for No Prophylaxis: Not Indicated Discharge Medications - Discharge Medications Home Medications: Ambulatory Orders Cholecalciferol (Vitamin D3) [Vitamin D3] 1,000 unit PO DAILY 01/09/15 [Last Taken 06/26/19] Glipizide [Glipizide ER] 5 mg PO BID 01/09/15 [Last Taken 06/26/19] Lisinopril [Zestril] 10 mg PO DAILY 01/09/15 [Last Taken 06/26/19] Metformin HCl [Glucophage] 1,000 mg PO BID 01/09/15 [Last Taken 06/26/19] Aspirin [Aspirin EC] 81 mg PO DAILY 09/10/15 [Last Taken 06/26/19] Rivaroxaban [Xarelto] 15 mg PO QHS 09/10/15 [Last Taken 06/26/19] Atenolol 50 mg PO DAILY 03/08/17 [Last Taken 06/26/19] Ferrous Sulfate 325 mg PO DAILY 10/25/18 [Last Taken 06/26/19] Rosuvastatin Calcium 20 mg PO QHS 06/27/19 [Last Taken Unknown] Discharge Note - Date Date of Discharge Note: 06/27/19 Condition: (2) Stable Forms: Patient Portal Access
--- NOTE | 2019-06-27 11:23 | Discharge Note ---
VTE H&P Assessment - Risk for VTE Risk for VTE: Yes Risk Level: Moderate Risk Assessment Date: 06/27/19 Risk Assessment Time: 11:18 VTE Orders Placed or Will Be Placed: No VTE Reason for No Prophylaxis: Not Indicated Discharge Medications - Discharge Medications Prescriptions: Ciprofloxacin HCl [Cipro] 500 mg PO Q12HR #20 tablet Home Medications: Ambulatory Orders Cholecalciferol (Vitamin D3) [Vitamin D3] 1,000 unit PO DAILY 01/09/15 [Last Taken 06/26/19] Glipizide [Glipizide ER] 5 mg PO BID 01/09/15 [Last Taken 06/26/19] Lisinopril [Zestril] 10 mg PO DAILY 01/09/15 [Last Taken 06/26/19] Metformin HCl [Glucophage] 1,000 mg PO BID 01/09/15 [Last Taken 06/26/19] Aspirin [Aspirin EC] 81 mg PO DAILY 09/10/15 [Last Taken 06/26/19] Rivaroxaban [Xarelto] 15 mg PO QHS 09/10/15 [Last Taken 06/26/19] Atenolol 50 mg PO DAILY 03/08/17 [Last Taken 06/26/19] Ferrous Sulfate 325 mg PO DAILY 10/25/18 [Last Taken 06/26/19] Acetaminophen [Tylenol 325Mg] 650 mg PO Q6H PRN tablet 06/27/19 [Last Taken Unknown] Ciprofloxacin HCl [Cipro] 500 mg PO Q12HR #20 tablet 06/27/19 [Last Taken Unknown] Rosuvastatin Calcium 20 mg PO QHS 06/27/19 [Last Taken Unknown] Discharge Note - Date Date of Discharge Note: 06/27/19 Disposition: Home, Self-Care Condition: (2) Stable Additional Instructions: follow up with Dr Lugo in 5 days drink fluids ,cranberry juice take cipro twice a day Referrals: TYLOR LUGO, D.O. [Primary Care Provider] - Forms: Patient Portal Access
[2019-06-27] MEDS: ACETAMINOPHEN 325 MG TAB PO PRN (12:59)
--- NOTE | 2019-06-27 15:01 | History and Physical Report ---
DATE: 06/27/2019 at 10:50 a.m. CHIEF COMPLAINT: Weakness, fever, urinary tract infection. HISTORY OF PRESENT ILLNESS: This 68-year-old female was seen twice in the emergency department yesterday, once for a fall where she fractured her fibula. She was placed in a fracture boot. She fell again, supposedly not traumatizing her head. Her first fall, she had a head CT which was negative. She said the second fall was more from weakness and upon arrival to the emergency department she had a fever of 102. She had a urine obtained which showed a urinary tract infection. She was admitted to the hospital for weakness, urinary tract infection, and dehydration. She was given IV fluids in the emergency department and admitted for observation. She was given 1 g of Rocephin in the emergency department and IV fluids with a diagnosis of urinary tract infection, falls, fibular fracture. PAST SURGICAL HISTORY: Left cataract extraction 05/22/2019, tubal ligation, tympanoplasty right ankle, cyst removal, tonsillectomy. PAST MEDICAL HISTORY: She has the beginning of COPD and asthma. She had a pulmonary embolism in January 2015, a heart attack a few years ago, hypertension, atrial fibrillation, diabetes mellitus, arthritis especially her left hip. MEDICATIONS: 1. Crestor 20 mg at h.s. 2. Xarelto 50 mg at h.s. 3. Metformin 1000 mg b.i.d. 4. Lisinopril 10 mg daily. 5. Glipizide 5 mg b.i.d. 6. Ferrous sulfate 325 daily. 7. Vitamin D 1000 units daily. 8. Atenolol 50 mg daily. 9. Aspirin 81 mg daily. ALLERGIES: No known drug allergies. FAMILY/PSYCHOSOCIAL HISTORY: Her mother had gastric cancer, diabetes, and a stroke. She is a former smoker. She quit in January 2015. No alcohol or drug use. REVIEW OF SYSTEMS: HEENT: No upper respiratory infection symptoms, cough, cold, or congestion. Cardiovascular: No chest pain, palpitations, or arrhythmia. Respiratory: No cough, cold, or congestion. Gastrointestinal: No nausea, vomiting, diarrhea, black stools, or bloody stools. Genitourinary: No dysuria, hematuria, frequency, or burning on urination. However, it was found that she had a urinary tract infection in the emergency department. Musculoskeletal: No acute problems. Chronic pain but she had weakness generally diffusely and a fever when she came in. Neurological: She had a previous CVA but no symptoms of a CVA at this time. No paralysis, paresthesias, or balance problems. She walks with a walker. Gynecologic: No lumps in her breasts or abnormal vaginal bleeding. Endocrine: She does have diabetes mellitus type 2. No thyroid disease. Integument: No rash, ulcers, change in moles, or yellow skin. PHYSICAL EXAMINATION: VITALS: Height 5 feet 2 inches, weight 169 pounds. Temperature 97.9, pulse 85, blood pressure 109/54, respiratory rate 18, pulse ox 95% on room air. HEENT: Pupils are equal, round, and reactive to light and accommodation. Extraocular muscles are intact. Throat is clear. Nose is clear. Tympanic membranes are henriquez. NECK: Supple. No jugular venous distention. No hepatojugular reflux. No carotid bruits. Thyroid is smooth. CARDIOVASCULAR: Regular rate and rhythm without murmurs, clicks, rubs, or gallops. RESPIRATORY: Clear to auscultation and percussion. ABDOMEN: Soft, nontender. No hepatosplenomegaly, no masses, no tenderness. Bowel sounds are active. No bruits. EXTREMITIES: No pitting edema. No cyanosis, no clubbing. Full range of motion. Peripheral pulses are good. BREASTS: Exam deferred. GYNECOLOGICAL: Exam deferred. RECTAL: Exam deferred. NEUROLOGIC: Cranial nerves II-XII intact. No gross defects. Sensation normal, strength normal. Deep tendon reflexes equal bilaterally with Babinski negative. MENTAL STATUS: Alert and oriented x3. IMPRESSION: 1. Weakness. 2. Unable to walk. 3. Urinary tract infection. 4. Dehydration. PLAN: IV Rocephin and IV fluids. further evaluation. [facility]
--- NOTE | 2019-06-27 15:10 | Discharge Summary ---
DATE: 06/27/2019 DISCHARGE DIAGNOSES: 1. Weakness, resolved. 2. Urinary tract infection. 3. Dehydration. 4. Hypercholesterolemia. 5. Atrial fibrillation, history of. 6. Diabetes mellitus type 2. 7. Hypertension. 8. Arthritis. ATTENDING PHYSICIAN: Boone Madera DO REASON FOR HOSPITALIZATION: This 68-year-old female presented to the emergency department x2. First she fell and had head trauma and fractured her ankle with postop boot placed or a fracture boot placed on her ankle. Right ankle fibular fracture. She also had a CT of the head done at that time which was negative for any bleeding. She fell again on the way back to the emergency department because of weakness. She had a fever of 102 and it was found in the emergency department by Dr. Mckeon that she had a urinary tract infection. She was admitted to the hospital for IV fluids and IV Rocephin. SIGNIFICANT FINDINGS: Oblique fracture of the distal fibula but it still extends at the level of the lateral corner of the ankle mortise, minimal displacement, symmetrical ankle mortise, soft tissue swelling. Her head CT with no CT evidence of acute major vessel infarction, intracranial hemorrhage, mass, or skull fracture. Mild atrophy. Moderate white matter lucency scattered in each cerebral hemisphere or nonspecifically but likely areas of chronic microvascular ischemia, partial opacification of the superior aspect of the left middle ear cavity. She also had a hip x-ray, right hip osteopenia, mildly limited evaluation, no acute fracture nor dislocation identified. Laboratory showing WBC 9500, hemoglobin 12.4, potassium 4.6, BUN 17, creatinine 1.0, glucose 185. Urine showing too numerous to count WBCs, 10-15 RBCs, bacteria 3+, epithelial cells 7- 10, glucose in the urine, specific gravity 1.015. THERAPY PROVIDED: Given IV fluids, IV Rocephin, oral Cipro. Feeing much better on the day of discharge. HOSPITAL COURSE: Much improved. CONDITION ON DISCHARGE: Much improved. DISCHARGE INSTRUCTIONS: Follow up with Dr. Pereyra in 5 days. Cipro 500 mg b.i.d. for 10 days. Drink plenty of fluids. Use a walker to ambulate. Continue her home medications. [facility]
[2019-06-27] MEDS ORDERED: CEFTRIAXONE 1GM/50ML BAG 1 GM/50 ML BAG IVPB SCH (20:00)
== END 2019-06-27 13:00 | disposition home or self-care (01) ==
LOC: ER 19:25 → INTOOBSV 22:24 → MEDSURG 22:24
PROVIDERS: ADMIT Emergency Medicine; ATTEND Emergency Medicine
DX: R50.9 Fever, unspecified (principal); S82.431A Displaced oblique fracture of shaft of right fibula, initial encounter for closed fracture; S09.90XA Unspecified injury of head, initial encounter; M25.551 Pain in right hip; I10 Essential (primary) hypertension; E11.9 Type 2 diabetes mellitus without complications; I48.91 Unspecified atrial fibrillation; I25.2 Old myocardial infarction; W19.XXXA Unspecified fall, initial encounter; Y92.009 Unspecified place in unspecified non-institutional (private) residence as the place of occurrence of the external cause; Z79.84 Long term (current) use of oral hypoglycemic drugs; Z87.891 Personal history of nicotine dependence; Z79.01 Long term (current) use of anticoagulants
CPT/HCPCS: 99285 ×2; 85025; 80053; 36416; 81001; 82948; 73610; 73502; 70450; G0378 ×2; J3490; J0696; 99220; J7030